=== PATIENT | male | born 1965 | race Caucasian/White ===

== ENCOUNTER 2024-04-22 22:43 | Inpatient (IN) ==
--- NOTE | 2024-04-22 23:18 | Emergency Department Note ---
Impression & Plan SHRUTHI (acute kidney injury), Thrombocytopenia, Body aches ED Provider Note NAME: MAINOR GALINDO Jr AGE: 58 SEX: M : 1965 ARRIVES VIA: Walk-In INFORMANT: Patient, significant other ED PROVIDER(S): Trenton Trevizo MD CHIEF COMPLAINT: Allover body pain. MEDICAL DECISION MAKING: Patient presented due to concern for diffuse body pain. IV was established and blood work was obtained. Patient was ordered IV fentanyl and IV Ofirmev. Review of the patient's prior blood work did show an increase in lymphocyte count as well as thrombocytopenia. Anaplasma Relexxii and Lyme's testing also ordered along with a CK. Patient was ordered IV fluids. The patient did have a CT angio of the chest completed yesterday and CT abdomen pelvis without contrast pleated earlier today. 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 When asked the patient states that this has been under surveillance. Patient has good pedal pulse in the bilateral lower extremities. Blood work shows a normal white count mild anemia with thrombocytopenia of 88,000. SHRUTHI with creatinine 1.73 patient was ordered additional IV fluids. Initial lactate of 2.2. Repeat 1.6. TSH is elevated but free T4 is normal. BBC and Anaplasma smears do not show evidence of intracytoplasmic inclusion bodies. BioFire negative. Patient was still having pain was ordered IV morphine 6 mg IV. I did speak with the on-call hospital service Dr. Erickson and the patient was admitted to the medicine service. Discussion w/ other healthcare providers: Dr. Erickson inpatient medicine service Prior /Outside records reviewed: None Differential diagnosis: Infection, dehydration, metabolic abnormality, hypo/hyperglycemia, electrolyte imbalance, anemia, UTI, pneumonia, thyroid dysfunction among others were considered. Diagnostics, as interpreted by me: ECG: None Cardiac monitoring: An order was placed for continuous cardiac monitoring. The monitor shows a rate of 75 with sinus rhythm. Patient was placed on pulse oximetry Medical decision rules: None Imaging studies: I informally interpreted the patient's Chest x-ray does not show obvious pneumonia or pneumothorax but may show pulmonary nodules. with formal report to follow. HPI: Patient presents due to concern for allover body pain. Patient states that he was seen yesterday for chest pain he was seen today for lower back pain. The patient states that he did receive some tramadol and morphine here. The patient states as an outpatient the patient did try to take an oxycodone but did not have improvement in symptoms. Patient states that he does have chest pain now. Patient states that he does have some right-sided lower back pain. Patient denies any falls or trauma no heavy lifting twisting or turning. The patient denies any increase in exercise or activity. No significant amount of exercise. Patient states that he had a normal bowel movement today. Patient states that earlier when he was here he did provide a urine specimen which he noticed darker color and states that he has not had as much urine output since. Patient states that he did have 2 milkshakes and 2 cheeseburgers since time of his discharge. Patient denies any numbness tingling or focal weakness. The patient reports that he has allover body aches. Patient does not report any tick bites or concern for Lyme's. He does have a history of sarcoid. Patient does state that his joints do hurt. PAST MEDICAL HISTORY: See Below PAST SURGICAL HISTORY: See Below SOCIAL HISTORY: See Below HOME MEDICATIONS: See Below ALLERGIES: See Below VITALS: See Below PHYSICAL EXAMINATION: GENERAL: Uncomfortable but nontoxic in appearance. EYE EXAM: Normal conjunctiva. PERRL, no anisocoria and EOM's grossly intact w/o pain. OROPHARYNX: Moist mucus membranes, grossly normal dentition. NECK: Trachea midline, no stridor. LUNGS: Clear to auscultation. Normal chest wall mechanics. HEART: NSR, no MRG. ABDOMEN: Abdomen soft, non-tender, no masses, no rebound or guarding. BACK: No CVA TTP. No midline thoracic or lumbar TTP. SKIN: No rashes and no bruising. UPPER EXTREMITIES: Upper extremities are grossly normal. No evidence of obvious joint swelling. LOWER EXTREMITIES: Grossly normal, no edema. 2+ pedal pulses bilaterally. Negative Homans' sign bilaterally. No evidence of obvious joint swelling. NEURO EXAM: A&O x3, cranial nerves II-XII grossly intact, normal speech, moves all 4 extremities. Past Med/Surg History Problem List (Updated 04/23/24 @ 04:42 by Trenton Trevizo MD) Body aches (Acute) Thrombocytopenia (Acute) Muscle spasticity SHRUTHI (acute kidney injury) (Acute) Back pain (Acute) Atypical chest pain (Acute) Cough Pre-op testing Abnormal chest CT Medical History No pertinent family history Shortness of breath Multiple pulmonary nodules Sarcoidosis Surgical History No pertinent past surgical history Social History Smoking Status: Never smoker Tobacco Type: Smokeless Tobacco (Dip or Chew) Cigarettes Per Day: 1/2; Second Hand Exposure: No; Do You Dip or Chew Tobacco: Yes; Hx Alcohol Use: No Hx Substance Use: No Preferred Language: Latvian Communication Ability: Effective Lining Repairer Required: No Beliefs That Will Affect Care: None Current Living Situation: Spouse Other Information That Helps Us Care for You: No Feels Safe at Home: Yes Safety Concerns: Feels Safe At This Time Assistive Devices: Glasses and Hearing Aid - Bilateral Allergies Allergies Allergy/AdvReac Type Severity Reaction Status Date / Time No Known Allergies Allergy Verified 10/18/23 13:50 Home Meds Home Medications Medication Instructions Recorded Confirmed cholecalciferol (vitamin D3) 62.5 mcg PO DAILY 11/07/22 10/18/23 mcg (2,500 unit) capsule cholecalciferol (vitamin D3) 25 50 mcg PO QAM 04/21/24 04/21/24 mcg (1,000 unit) tablet fexofenadine 180 mg tablet 180 mg PO QAM 04/21/24 04/21/24 folic acid 1 mg tablet 1 mg PO QAM 04/21/24 04/21/24 methotrexate sodium 2.5 mg tablet 10 mg PO DIRECTED 04/21/24 04/21/24 Previous Rx's Medication Instructions Recorded prednisone 20 mg tablet 20 mg PO BID 5 days #10 tabs 04/21/24 cyclobenzaprine 5 mg tablet 5 mg PO TID PRN muscle spasm #30 04/22/24 tabs oxycodone 5 mg tablet 5 mg PO Q8H PRN pain #11 tabs 04/22/24 Results & Data (ED) Vital Signs Vital Signs - 24 hr 04/22/24 22:46 04/22/24 23:09 04/22/24 23:30 Temperature 36.7 C Temperature Source Temporal Artery Scan Pulse Rate 92 H 76 Pulse Rate [Finger] 70 Pulse Rhythm [Finger] Regular Pulse Strength [Finger] Normal Respiratory Rate 18 20 Respiratory Effort / Characteristics Non-Labored Non-Labored Spontaneous Respiratory Depth Normal Normal Respiratory Pattern Regular Blood Pressure [Right Arm] 152/93 H Blood Pressure Mean [Right Arm] 112 Pulse Oximetry 93 95 Oxygen Delivery Method Room Air Room Air Sepsis Recent Fever Within 48 Hours No Sepsis New/Unexplained Change in Mental Status N/A Sepsis Action Taken by Nursing No Action Required 04/22/24 23:30 04/23/24 01:00 Temperature Temperature Source Pulse Rate Pulse Rate [Finger] 72 Pulse Rhythm [Finger] Regular Pulse Strength [Finger] Normal Respiratory Rate 20 Respiratory Effort / Characteristics Non-Labored Spontaneous Respiratory Depth Normal Respiratory Pattern Regular Blood Pressure [Right Arm] 166/87 H Blood Pressure Mean [Right Arm] 113 Pulse Oximetry 95 91 Oxygen Delivery Method Room Air Room Air Sepsis Recent Fever Within 48 Hours Sepsis New/Unexplained Change in Mental Status Sepsis Action Taken by Group Home Medications Current Medication List: was personally reviewed by me Laboratory Data Attestation: I reviewed the patient's lab results. 04/22/24 23:35 04/22/24 23:35 Lab Results 04/22/24 04/22/24 04/23/24 Range/Units 23:35 23:50 01:35 WBC 10.45 (4.8-10.8) K/ul RBC 4.61 L (4.70-6.10) M/uL Hgb 13.8 L (14.0-18.0) g/dl Hct 40.2 L (42.0-52.0) % MCV 87.2 (80.0-100.0) fL MCH 29.9 (25.0-34.0) pg MCHC 34.3 (32.0-36.0) g/dL RDW Std Deviation 41.8 (36.4-46.3) fL RDW Coeff of Fermín 13.7 (11.5-14.5) % Plt Count 88 L (130-400) K/uL MPV 11.3 (9.4-12.4) fL Absolute Nucleated RBC 0.19 H (0.00-0.12) K/uL Nucleated RBC % (auto) 1.8 % Neutrophils % (Manual) 57 % Lymphocytes % (Manual) 32 % Monocytes % (Manual) 3 % Eosinophils % (Manual) 2 % Basophils % (Manual) 1 % Metamyelocytes % (Man) 2 % Myelocytes % (Man) 3 % Neutrophils # (Manual) 5.96 (1.40-6.50) K/uL Total Absolute Neuts 5.96 (1.4-6.5) K/uL Lymphocytes # (Manual) 3.34 (1.2-3.4) K/uL Total Abs Lymphocytes 3.34 (1.2-3.4) K/uL Monocytes # (Manual) 0.31 (0.11-0.59) K/uL Eosinophils # (Manual) 0.21 (0-0.50) K/uL Basophils # (Manual) 0.10 (0-0.2) K/uL Metamyelocytes # (Man) 0.21 H (0-0) K/uL Myelocytes # (Manual) 0.31 H (0-0) K/uL RBC Morphology Unremarkable PT 14.1 H (9.0-12.0) Seconds INR 1.3 H (0.9-1.1) Sodium 139 (136-145) mmol/L Potassium 4.2 (3.5-5.1) mmol/L Chloride 103 (98-107) mmol/L Carbon Dioxide 27 (21-32) mmol/L Anion Gap 9 (3-11) BUN 23 (6-23) mg/dl Creatinine 1.73 H (0.6-1.4) mg/dl Est Cr Clr Drug Dosing Not Reportable Est GFR ( Amer) 49.3 ml/min Est GFR (Non-Af Amer) 42.6 ml/min BUN/Creatinine Ratio 13.3 (10-20) Glucose 185 H (70-99(Fasting)) mg/dl Lactate 2.2 H* 1.6 (0.4-2.0) mmol/L Calcium 9.9 (8.6-10.3) mg/dl Magnesium 2.0 (1.7-2.4) mg/dl Total Bilirubin 0.4 (0.2-1.0) mg/dl AST 68 H (13-39) U/L ALT 44 (7-52) U/L Alkaline Phosphatase 94 (34-104) U/L Total Creatine Kinase 118 (30-223) U/L Troponin I High Sens 18.2 D (0-20) pg/ml C-Reactive Protein 1.96 H (0-0.5) mg/dl Total Protein 7.2 (6.0-8.3) gm/dl Albumin 4.6 (3.4-5.0) gm/dl Globulin 2.6 (2.5-4.0) gm/dl Albumin/Globulin Ratio 1.8 (0.9-2) TSH 7.728 H (0.300-4.500) uIu/ml Free T4 0.85 (0.61-1.60) ng/dl Adenovirus (PCR) Not Detected (NotDetected) Anaplasma Smear See Comment Babesia Smear See Comment B. pertussis DNA (PCR) Not Detected (NotDetected) B.parapertussis DNA PCR Not Detected (NotDetected) Lyme Disease Screen Negative (Negative) C. pneumoniae DNA (PCR) Not Detected (NotDetected) Coronavirus OC43 (PCR) Not Detected (NotDetected) Coronavirus HKU1 (PCR) Not Detected (NotDetected) Coronavirus 229E (PCR) Not Detected (NotDetected) SARS-CoV-2 (PCR) Not Detected (NotDetected) Coronavirus NL63 (PCR) Not Detected (NotDetected) Human Metapneumovir PCR Not Detected (NotDetected) Influenza Type A (PCR) Not Detected (NotDetected) Influenza Type B (PCR) Not Detected (NotDetected) M. pneumoniae (PCR) Not Detected (NotDetected) Parainfluenza 1 (PCR) Not Detected (NotDetected) Parainfluenza 2 (PCR) Not Detected (NotDetected) Parainfluenza 3 (PCR) Not Detected (NotDetected) Parainfluenza 4 (PCR) Not Detected (NotDetected) RSV (PCR) Not Detected (NotDetected) Entero/Rhino (PCR) Not Detected (NotDetected) Administered Medications Lactated Ringer's (Lr) 1,000 mls @ 125 mls/hr IV .Q8H [facility] Stop: 05/23/24 02:52 Last Admin: 04/23/24 03:25 Dose: 125 mls/hr Documented By: Magnesium Sulfate/Dextrose (Magnesium Sulfate / D5w) 1 gm in 100 mls @ 50 mls/hr IV Q2H [facility] Stop: 04/23/24 07:14 Last Admin: 04/23/24 03:25 Dose: 50 mls/hr Documented By: JACKSON Discontinued Medications Cyclobenzaprine HCl (Cyclobenzaprine Hcl 10 Mg Tab) 10 mg PO NOW STA Stop: 04/23/24 01:24 Last Admin: 04/23/24 01:32 Dose: 10 mg Documented By: JUAN DAVID Diazepam (Diazepam 5 Mg Tablet) 5 mg PO NOW ONE Stop: 04/23/24 03:08 Last Admin: 04/23/24 03:24 Dose: 5 mg Documented By: JACKSON Fentanyl Citrate (Fentanyl Citrate Pf 100 Mcg/2 Ml Vial) 100 mcg IV NOW STA Stop: 04/22/24 23:14 Last Admin: 04/22/24 23:27 Dose: 100 mcg Documented By: JUAN DAVID Hydromorphone HCl (Hydromorphone Inj 0.5 Mg/0.5 Ml Syr) 0.5 mg IV NOW STA Stop: 04/23/24 01:05 Last Admin: 04/23/24 01:11 Dose: 0.5 mg Documented By: JUAN DAVID Hydromorphone HCl (Hydromorphone Inj 0.5 Mg/0.5 Ml Syr) 0.5 mg IV Q15M PRN PRN Reason: Pain Last Admin: 04/23/24 02:08 Dose: 0.5 mg Documented By: JUAN DAVID Sodium Chloride (Nss) 1,000 mls @ 999 mls/hr IV .Q1H1M [facility] Stop: 04/23/24 00:15 Last Admin: 04/22/24 23:32 Dose: Not Given Documented By: JUAN DAVID Sodium Chloride (Nss) 1,000 mls @ 999 mls/hr IV .Q1H1M ONE Stop: 04/23/24 00:13 Last Infusion: 04/23/24 01:05 Dose: Infused Documented By: JUAN DAVID Admin: 04/22/24 23:31 Dose: 999 mls/hr Documented By: JUAN DAVID Acetaminophen (Ofirmev) 1,000 mg in 100 mls @ 400 mls/hr IV NOW STA Stop: 04/22/24 23:27 Last Infusion: 04/22/24 23:58 Dose: Infused Documented By: JUAN DAVID Admin: 04/22/24 23:31 Dose: 400 mls/hr Documented By: JUAN DAVID Sodium Chloride (Nss) 1,000 mls @ 999 mls/hr IV .Q1H1M ONE Stop: 04/23/24 01:32 Last Infusion: 04/23/24 01:44 Dose: Infused Documented By: JUAN DAVID Admin: 04/23/24 00:38 Dose: 999 mls/hr Documented By: JUAN DAVID Morphine Sulfate (Morphine Sulfate 10 Mg/Ml Carp/Vial) 6 mg IV NOW STA Stop: 04/23/24 00:33 Last Admin: 04/23/24 00:37 Dose: 6 mg Documented By: JUAN DAVID Imaging Data Radiologist's Impression: Renal Ultrasound 04/23/24 01:33 Exam(s): US RENAL EXAM: US Retroperitoneal Complete, Renal CLINICAL HISTORY: Reason for exam: pain. TECHNIQUE: Real-time complete ultrasound of the retroperitoneum with image documentation. COMPARISON: No relevant prior studies available. FINDINGS: Right kidney: Unremarkable. No stones. No hydronephrosis. The right kidney measures 12.1 x 4.0 x 5.6 cm. Left kidney: The left kidney measures 11.9 x 5.0 x 5.7 cm. 6 mm left renal cyst. No stones. No hydronephrosis. Bladder: Bilateral ureteral jets visualized. Mobile debris within the urinary bladder. Mild bladder wall thickening. IMPRESSION: Mobile debris within the urinary bladder. Mild bladder wall thickening. Correlate for cystitis. Electronically signed by: Jay Crooks M.D. 04/23/24 03:45 AM Discharge Plan Visit Data Chief Complaint: Pain (Generalized) Stated Complaint: CHEST PAIN, GROIN/SHOULDER/ANKLE/BACK PAIN ED Provider: Trenton Trevizo Discharge Problem: SHRUTHI (acute kidney injury), Thrombocytopenia, Body aches Patient Disposition: Admitted As Inpatient Discharge Instructions Interventions: ED Discharge Assessment Last Done: 04/23/24 02:04
[2024-04-22] MEDS: fentaNYL citrate PF 100 MCG/2 ML VIAL IV STA (23:27)
[2024-04-22] MEDS: ACETAMINOPHEN 1,000 MG/100 ML VIAL IV STA (23:31)
[2024-04-22] MEDS: SODIUM CHLORIDE 0.9% 1,000 ML IV ONE (23:31)
[2024-04-22] MEDS: SODIUM CHLORIDE 0.9% 1,000 ML IV SCH (23:32)
[2024-04-23 00:12] LABS: Alanine Aminotransferase 44 U/L (7-52); Albumin Globulin Ratio 1.8 (0.9-2); Albumin Level 4.6 gm/dl (3.4-5.0); Alkaline Phosphatase 94 U/L (34-104); Anion Gap 9 (3-11); Aspartate Aminotransferase 68 U/L (13-39); BUN Creatinine Ratio 13.3 (10-20); Bilirubin,Total 0.4 mg/dl (0.2-1.0); Blood Urea Nitrogen 23 mg/dl (6-23); Calcium 9.9 mg/dl (8.6-10.3); Carbon Dioxide 27 mmol/L (21-32); Chloride 103 mmol/L (98-107); Est GFR (African American) 49.3 ml/min; Est GFR (Non-African American) 42.6 ml/min; Globulin 2.6 gm/dl (2.5-4.0); Glucose 185 mg/dl (70-99(Fasting)); Potassium 4.2 mmol/L (3.5-5.1); Sodium 139 mmol/L (136-145); Total Protein 7.2 gm/dl (6.0-8.3)
[2024-04-23 00:20] LABS: INR 1.3 (0.9-1.1); Prothrombin Time 14.1 Seconds (9.0-12.0)
[2024-04-23 00:32] LABS: ALC (manual) 3.34 K/uL (1.2-3.4); ANC (manual) 5.96 K/uL (1.4-6.5); Basophils % (manual) 1 %; Eosinophils # (manual) 0.21 K/uL (0-0.50); Eosinophils % (manual) 2 %; Hematocrit (blood only) 40.2 % (42.0-52.0); Hemoglobin 13.8 g/dl (14.0-18.0); Lymphocytes # (manual) 3.34 K/uL (1.2-3.4); Lymphocytes % (manual) 32 %; Mean Corpuscular Hemoglobin 29.9 pg (25.0-34.0); Mean Corpuscular Hgb Conc 34.3 g/dL (32.0-36.0); Mean Corpuscular Volume 87.2 fL (80.0-100.0); Mean Platelet Volume 11.3 fL (9.4-12.4); Metamyelocytes # (manual) 0.21 K/uL (0-0); Metamyelocytes % (manual) 2 %; Monocytes # (manual) 0.31 K/uL (0.11-0.59); Monocytes % (manual) 3 %; Myelocytes # (manual) 0.31 K/uL (0-0); Myelocytes % (manual) 3 %; Neutrophils # (manual) 5.96 K/uL (1.40-6.50); Neutrophils % (manual) 57 %; Nucleated RBC # (auto) 0.19 K/uL (0.00-0.12); Nucleated RBC % (auto) 1.8 %; Platelet Count 88 K/uL (130-400); RBC Morphology Unremarkable; RDW Coefficient of Variation 13.7 % (11.5-14.5); RDW Standard Deviation 41.8 fL (36.4-46.3); Red Blood Count 4.61 M/uL (4.70-6.10); White Blood Count 10.45 K/ul (4.8-10.8)
[2024-04-23] MEDS: MoRPHine SULFATE 10 MG/ML CARP/VIAL IV STA (00:37)
[2024-04-23] MEDS: SODIUM CHLORIDE 0.9% 1,000 ML IV ONE (00:38)
[2024-04-23 00:55] LABS: Thyroid Stimulating Hormone 7.728 uIu/ml (0.300-4.500); Troponin I High Sensitivity 18.2 pg/ml (0-20)
--- NOTE | 2024-04-23 00:59 | History & Physical Report ---
Date of Service April 23, 2024 Assessment & Plan (1) Back pain: Plan: -Back pain most likely musculoskeletal in nature -As needed pain meds. Magnesium started. -Continue on prednisone 20 mg twice daily. -K-pad as needed. -Flexeril 5 mg 3 times daily. -Also try 1 dose of Valium. (2) Muscle spasticity: Plan: -Patient most likely is having muscle spasms. -Patient received morphine 6 mg, Dilaudid 0.5 mg, fentanyl 100 mcg, acetaminophen 1000 mg, in the ED but still was having spasticity. -Pain meds as needed, Flexeril 5 mg 3 times a day. Started on 2 bags of magnesium. (3) Body aches: Plan: -Patient with bodyaches and abnormal lab abnormalities without unknown source of infection. -PT of 14.1, INR 1.3. -Lactate of 2.2 which improved to 1.6 after fluids. -Elevated AST of 68. -CRP of 1.96 -TSH of 7.728 -Urine showed 2+ protein, 1+ blood -Respiratory BioFire negative. -Creatinine of 1.73. -No leukocytosis, hemoglobin of 13.8, platelet count of 88 -Tick panel negative. Respiratory BioFire negative. -Continue on lactated Ringer's at 125. -Blood cultures pending. -If labs continue to trend downward may consider infectious disease as there is no known source of infection at this time. -Will hold off on antibiotics. May consider if clinical picture worsens. (4) Thrombocytopenia: Plan: -Platelet count of 88, slightly declining. No other previous history of thrombocytopenia. -Most likely secondary to underlying infection though source is not known. (5) SHRUTHI (acute kidney injury): Plan: -Creatinine of 1.73 which is has been increasing since his ED visit earlier today and yesterday. -Lactate of 2.2, mostly secondary to dehydration. - (6) Atypical chest pain: Plan: -Patient with atypical chest pain most likely result of muscle spasticity. -Troponin negative. -Continue to monitor on telemetry. (7) Sarcoidosis: Plan: -Patient with a chest CTA yesterday which showed no pulmonary embolus. Signs of patient's pulmonary sarcoidosis. -Did also show solid pulmonary nodules measuring up to 6 mm, follow-up was recommended. -On methotrexate, holding at this time. -Do not believe that this is a sarcoidosis flare but cannot rule out at this time. (8) Nephrolithiasis: Plan: -Patient had a abdominal and pelvis CT earlier today which showed nonobstructing bilateral nephrolithiasis. -UA is stated above. 1+ blood in urine. No bacteria present -Renal ultrasound showed mobile debris within the urinary bladder as well as mild bladder wall thickening. (9) Enlarged prostate: Plan: -Abdominal and pelvis CT earlier today showed prostamegaly with decompressed urinary bladder. Plan Fluids: LR at 125 Nutrition: Regular Code status: Full code DVT ppx: Will consider if prolonged hospital stay Dispo: PCU/telemetry History of Present Illness Chief Complaint: bodyaches, thrombocytopenia, SHRUTHI, back pain Primary Care Provider: Waylon Gil MD Patient has a past medical history of sarcoidosis on methotrexate who presents to the hospital with back pain that radiates to his groin and down his thighs. Patient is also complaining of overall body pain. He has been seen in the ED 3 times since yesterday. Yesterday he was having chest pain which prompted him into the emergency room which was negative for any cardiac causes. He was sent home on prednisone. Around noon today patient was having some lower back pain and pain into his pelvis. He then was having diffuse pain all over. Majority of his back pain is in the right lower side. Denies any trauma to the area or any recent injuries. Denies heavy lifting. He states that he has not had much urine output. Denies any fevers or chills but did state that he felt clammy for a little bit. He has tried tramadol and morphine but did not alleviate the pain. Allergies Allergy/AdvReac Type Severity Reaction Status Date / Time No Known Allergies Allergy Verified 10/18/23 13:50 Home Medications Medication Instructions Recorded Confirmed Type cholecalciferol (vitamin D3) 62.5 mcg PO DAILY 11/07/22 10/18/23 History mcg (2,500 unit) capsule cholecalciferol (vitamin D3) 25 50 mcg PO QAM 04/21/24 04/21/24 History mcg (1,000 unit) tablet fexofenadine 180 mg tablet 180 mg PO QAM 04/21/24 04/21/24 History folic acid 1 mg tablet 1 mg PO QAM 04/21/24 04/21/24 History methotrexate sodium 2.5 mg tablet 10 mg PO DIRECTED 04/21/24 04/21/24 History prednisone 20 mg tablet 20 mg PO BID 5 days #10 tabs 04/21/24 Rx cyclobenzaprine 5 mg tablet 5 mg PO TID PRN muscle spasm #30 04/22/24 Rx tabs oxycodone 5 mg tablet 5 mg PO Q8H PRN pain #11 tabs 04/22/24 Rx Past Med/Surg History Problem List (Updated 04/23/24 @ 04:47 by Fortunato Mendes DO) Enlarged prostate Nephrolithiasis Body aches (Acute) Thrombocytopenia (Acute) Muscle spasticity SHRUTHI (acute kidney injury) (Acute) Back pain (Acute) Atypical chest pain (Acute) Cough Pre-op testing Abnormal chest CT Medical History No pertinent family history Shortness of breath Multiple pulmonary nodules Sarcoidosis Surgical History No pertinent past surgical history Social History Smoking Status: Never smoker Tobacco Type: Smokeless Tobacco (Dip or Chew) Cigarettes Per Day: 1/2; Second Hand Exposure: No; Do You Dip or Chew Tobacco: Yes; Hx Alcohol Use: No Hx Substance Use: No Preferred Language: Lao Communication Ability: Effective Claims Account Specialist Required: No Beliefs That Will Affect Care: None Current Living Situation: Spouse Other Information That Helps Us Care for You: No Feels Safe at Home: Yes Safety Concerns: Feels Safe At This Time Assistive Devices: Glasses and Hearing Aid - Bilateral Review of Systems Review of Systems: All systems reviewed & are unremarkable except as noted in Subjective Physical Exam Physical Exam: Constitutional: well-appearing, mild acute distress, uncomfortable HEENT: NCAT, no conjunctival injection CV: regular rhythm, no murmur appreciated, extremities well-perfused, no LE edema Resp: CTABL, no wheezes/rales/rhonchi appreciated, no increased work of breathing GI: soft, nondistended, nontender, BS normoactive MSK: Muscle spasticity in the lower back, thighs, hamstrings, abdominal wall Skin: warm, dry, no rash appreciated Neuro: alert, oriented, no focal neurologic deficit appreciated Results & Data Results & Data Vital Signs (Past 12 Hours) Vital Signs Temp Pulse Pulse Resp BP Pulse Ox O2 Del Method 04/22/24 23:30 95 Room Air 04/22/24 23:30 70 20 152/93 H 95 Room Air 04/22/24 23:09 76 04/22/24 22:46 36.7 C 92 H 18 93 Room Air Supervising Physician Co-Signing Physician Notes Patient seen and examined, chart reviewed, case discussed with Dr. Mendes and I agree with the assessment and plan as above. Patient with severe body pain - back pain, leg pain, muscle spasms in the chest and back On exam he is in moderate distress secondary to pain MMM, neck supple +S1/S2, regular, no m/r/g Lungs CTA Abd soft, NT/ND Ext - warm, well perfused Labs and images reviewed Assessment/Plan Question infection - patient with leukocytosis, baseline WBC count is 3-4 (likely secondary to underlying Sarcooidosis), wosening thrombocytopenia -Will follow cultures -Initiate Ceftriaxone -Pain control - Valium, Magnesium for muscle spasm -Remainder as above Resident Activity Tracking Resident Involvement: Resident Care Provided Care Provided: Adult Hospital Medicine (1) Back pain Back pain laterality: unspecified Back pain location: back pain in unspecified location Chronicity: acute Qualified Code(s): M54.9 - Dorsalgia, unspecified
[2024-04-23 01:11] LABS: Adenovirus PCR Not Detected (NotDetected); Bordetella parapertussis PCR Not Detected (NotDetected); Bordetella pertussis PCR Not Detected (NotDetected); Chlamydia pneumoniae PCR Not Detected (NotDetected); Coronavirus 229E PCR Not Detected (NotDetected); Coronavirus CoV-2 (COVID19)PCR Not Detected (NotDetected); Coronavirus HKU1 PCR Not Detected (NotDetected); Coronavirus NL63 PCR Not Detected (NotDetected); Coronavirus OC43PCR Not Detected (NotDetected); Human Metapneumovirus PCR Not Detected (NotDetected); Influenza A PCR Not Detected (NotDetected); Influenza B PCR Not Detected (NotDetected); Mycoplasma pneumoniae PCR Not Detected (NotDetected); Parainfluenza Virus 1 PCR Not Detected (NotDetected); Parainfluenza Virus 2 PCR Not Detected (NotDetected); Parainfluenza Virus 3 PCR Not Detected (NotDetected); Parainfluenza Virus 4 PCR Not Detected (NotDetected); Respiratory Syncytial VirusPCR Not Detected (NotDetected); Rhinovirus/Enterovirus PCR Not Detected (NotDetected)
[2024-04-23] MEDS: HYDROmorphone INJ 0.5 MG/0.5 ML SYR IV STA (01:11)
[2024-04-23 01:17] LABS: C Reactive Protein 1.96 mg/dl (0-0.5)
[2024-04-23] MEDS: CYCLOBENZAPRINE HCL 10 MG TAB PO STA (01:32)
[2024-04-23 01:37] LABS: T4 Free Thyroxine 0.85 ng/dl (0.61-1.60)
[2024-04-23] MEDS ORDERED: HYDROmorphone INJ 1 MG/ML SYRINGE IV PRN (01:43)
[2024-04-23 01:54] LABS: Creatine Kinase 118 U/L (30-223)
[2024-04-23] MEDS: HYDROmorphone INJ 0.5 MG/0.5 ML SYR IV PRN ×2 (02:08→05:09)
[2024-04-23] MEDS ORDERED: HYDROmorphone INJ 0.5 MG/0.5 ML SYR IV PRN (02:53)
[2024-04-23] MEDS ORDERED: ONDANSETRON INJ 2 MG/ML 2 ML VIAL IV PRN (02:53)
[2024-04-23] MEDS: diazePAM 5 MG TABLET PO ONE (03:24)
[2024-04-23] MEDS: MAGNESIUM SULFATE / D5W 1 GM/100 ML BAG IV SCH (03:25)
[2024-04-23] MEDS: LACTATED RINGER'S 1,000 ML IV SCH (03:25)
--- NOTE | 2024-04-23 03:37 | Billing Data ---
Date of Service April 23, 2024 Coding Level of Care Code 70204 INT INP/OBS CARE
--- NOTE | 2024-04-23 03:47 | Ultrasound Report ---
Exam(s): US RENAL EXAM: US Retroperitoneal Complete, Renal CLINICAL HISTORY: Reason for exam: pain. TECHNIQUE: Real-time complete ultrasound of the retroperitoneum with image documentation. COMPARISON: No relevant prior studies available. FINDINGS: Right kidney: Unremarkable. No stones. No hydronephrosis. The right kidney measures 12.1 x 4.0 x 5.6 cm. Left kidney: The left kidney measures 11.9 x 5.0 x 5.7 cm. 6 mm left renal cyst. No stones. No hydronephrosis. Bladder: Bilateral ureteral jets visualized. Mobile debris within the urinary bladder. Mild bladder wall thickening. IMPRESSION: Mobile debris within the urinary bladder. Mild bladder wall thickening. Correlate for cystitis. Electronically signed by: Jay Crooks M.D. 04/23/24 03:45 AM
[2024-04-23] MEDS ORDERED: ACETAMINOPHEN 650 MG SUPP PR PRN (04:00)
[2024-04-23 05:39] LABS: Appearance Urine Cloudy (Clear); Bacteria Urine Automated None Seen (None Seen); Bilirubin Urine Negative (Negative); Blood Urine 2+ (Negative); Calcium Oxalate Crystals Urine Present (None Prsent); Cast Urine Automated >20 /lpf (0-2); Color Urine Yellow; Creatinine Urine Random 249.3 mg/dl; Glucose Urine UA Negative (Negative); Granular Casts Urine Present /lpf (None Prsent); Ketones Urine Trace (Negative); Leukocyte Esterase Urine Negative (Negative); Mucus Urine Present (None Prsent); Nitrite Urine Negative (Negative); Protein Creatinine Ratio Urine 0.8 (0-0.2); Protein Urine 2+ (Negative); RBC Urine Automated 0-2 /hpf (0-2); Specific Gravity Urine 1.035 (1.000-1.030); Urobilinogen Urine Negative (Negative); WBC Urine Automated 0-5 /hpf (0-5); pH Urine 5.5 (4.5-7.5)
[2024-04-23 06:56] LABS: INR 1.3 (0.9-1.1); Prothrombin Time 13.4 Seconds (9.0-12.0)
[2024-04-23 07:01] LABS: Albumin Globulin Ratio 1.9 (0.9-2); Albumin Level 4.1 gm/dl (3.4-5.0); BUN Creatinine Ratio 14.1 (10-20); Bilirubin,Total 0.3 mg/dl (0.2-1.0); C Reactive Protein 2.5 mg/dl (0-0.5); Calcium 8.6 mg/dl (8.6-10.3); Creatinine Clr Calc Pharmacy 66.1 ml/min; Est GFR (African American) 62.7 ml/min; Est GFR (Non-African American) 54.1 ml/min; Globulin 2.2 gm/dl (2.5-4.0); Potassium 4.6 mmol/L (3.5-5.1); Total Protein 6.3 gm/dl (6.0-8.3)
[2024-04-23 07:13] LABS: Hematocrit (blood only) 36.1 % (42.0-52.0); Hemoglobin 12.2 g/dl (14.0-18.0); Mean Corpuscular Hemoglobin 29.9 pg (25.0-34.0); Mean Corpuscular Hgb Conc 33.8 g/dL (32.0-36.0); Mean Corpuscular Volume 88.5 fL (80.0-100.0); Mean Platelet Volume 11.1 fL (9.4-12.4); Nucleated RBC # (auto) 0.18 K/uL (0.00-0.12); Nucleated RBC % (auto) 1.4 %; Platelet Count 66 K/uL (130-400); RDW Standard Deviation 44.6 fL (36.4-46.3); Red Blood Count 4.08 M/uL (4.70-6.10); White Blood Count 13.07 K/ul (4.8-10.8)
[2024-04-23 07:21] LABS: Troponin I High Sensitivity 14.7 pg/ml (0-20)
--- NOTE | 2024-04-23 07:37 | XRay Report ---
XR chest 1V portable HISTORY: weakness COMPARISON: Chest 08/23/2023. FINDINGS: No pneumothorax. No pleural effusions. The patient's known scattered pulmonary nodules are better appreciated on the recent chest CTA. The heart remains mildly enlarged. There is mild central pulmonary vascular congestion without overt edema. No acute fractures identified. IMPRESSION: 1. Cardiomegaly with mild central pulmonary vascular congestion. 2. The patient's known scattered pulmonary nodules are better appreciated on the recent chest CTA. ACT 112: Negative or not required by law. Electronically signed by: Kp Tamez M.D. 04/23/2024 7:35 AM
[2024-04-23] MEDS: predniSONE 20 MG TAB PO SCH (07:53)
[2024-04-23] MEDS: cefTRIAXone SODIUM 2,000 MG/50 ML BAG IV SCH (07:53)
[2024-04-23] MEDS: CYCLOBENZAPRINE HCL 5 MG TAB PO SCH (08:00)
[2024-04-23 08:41] LABS: ALC (manual) 3.92 K/uL (1.2-3.4); ANC (manual) 5.62 K/uL (1.4-6.5); Eosinophils # (manual) 0.39 K/uL (0-0.50); Eosinophils % (manual) 3 %; Lymphocytes # (manual) 3.92 K/uL (1.2-3.4); Lymphocytes % (manual) 30 %; Metamyelocytes # (manual) 0.13 K/uL (0-0); Metamyelocytes % (manual) 1 %; Monocytes # (manual) 0.26 K/uL (0.11-0.59); Monocytes % (manual) 2 %; Myelocytes # (manual) 0.26 K/uL (0-0); Myelocytes % (manual) 2 %; Neutrophils # (manual) 5.62 K/uL (1.40-6.50); Neutrophils % (manual) 43 %; Other Cell Type % 19 %; Other Cells # (manual) 2.48 K/uL (0-0); RBC Morphology Unremarkable
[2024-04-23] MEDS: ACETAMINOPHEN 325 MG TAB PO PRN (09:15)
--- NOTE | 2024-04-23 10:54 | Electrocardiogram Report ---
Test Reason : Blood Pressure : */* mmHG Vent. Rate : 74 BPM Atrial Rate : 74 BPM P-R Int : 144 ms QRS Dur : 70 ms QT Int : 396 ms P-R-T Axes : 60 60 69 degrees QTcB Int : 439 ms Sinus rhythm with occasional Premature ventricular complexes Otherwise normal ECG When compared with ECG of 21-Apr-2024 08:08, Premature ventricular complexes are now Present Confirmed by Jose Eduardo Bowman ([id number]) on 04/23/2024 10:53:37 AM Referred By: REFERRED SELF Confirmed By: Jose Eduardo Bowman
[2024-04-23] MEDS: DOXYCYCLINE HYCLATE 100 MG CAP PO SCH (14:06)
--- NOTE | 2024-04-23 14:32 | Communication Note ---
Date of Service: April 23, 2024 Please refer to the H&P dictated earlier this morning for details of presentation and admission. In brief, the patient presented with back pain radiating to his bilateral groins and thighs. He was also noted to have some thrombocytopenia, acute kidney injury, elevated liver enzymes. For his back pain, he had CT abdomen/pelvis done that showed nonobstructing nephrolithiasis. CTA chest negative. Renal ultrasound was negative. I ordered a lumbar spine MRI, the results of which are still pending. Continue to treat the pain with IV Dilaudid, Flexeril For his thrombocytopenia, since he also has acute kidney injury and elevated liver enzymes, tickborne illness is in the differential. Will start the patient empirically on doxycycline p.o. twice daily and monitor for improvement. I was informed by the pathologist that his flow cytometry and smear are concerning for MDS. Consult hematology.
--- NOTE | 2024-04-23 16:12 | Magnetic Resonance Report ---
LUMBAR SPINE MRI HISTORY: B/l back pain TECHNIQUE: Multiplanar multisequence MRI of the lumbar spine was performed without the use of contras t. COMPARISON: Abdomen and pelvis CT 04/22/2024. FINDINGS: For the purpose of the report the L5-S1 disc space will be located on axial image 28 of 31. Bilateral L5 spondylolysis with 5 mm of anterolisthesis again noted. There is 2 mm of retrolisthesis of L2 on L3. No acute fractures within the lumbar spine. There is abnormal marrow signal intensity se en throughout the visualized osseous structures. This may correspond to the patient's known history o f sarcoidosis. Diffuse metastatic disease or underlying anemia would be difficult to exclude. Moderat e disc space narrowing at L2-L3 and L5-S1. Mild disc space narrowing at L3-L4. The conus terminates a t the L1 level. Mild disc space narrowing at T11-T12. Paravertebral soft tissues are unremarkable. L1-L2: No significant central canal or neural foraminal narrowing. L2-L3: Broad-based posterior disc bulge with mild ligamentum flavum hypertrophy. This results in mode rate central canal narrowing with an AP diameter of 7 mm and moderate bilateral neural foraminal narr owing. The disc bulge abuts the transiting bilateral L3 nerve roots. L3-L4: Broad-based posterior disc bulge with ligamentum and facet hypertrophy resulting in moderate t o severe central canal narrowing with an AP diameter of 5 mm. The disc bulge abuts the bilateral florentino siting L4 nerve roots. There is also moderate bilateral neural foraminal narrowing. L4-L5: Small broad-based posterior disc bulge with ligamentum and facet hypertrophy resulting in mild central canal narrowing. There is mild to moderate bilateral neural foraminal narrowing due to the d isc bulge and facet hypertrophy. L5-S1: No significant central canal narrowing. However, there is severe bilateral neural foraminal na rrowing with impingement of the exiting nerve roots from the spondylolisthesis, small disc bulge, and facet hypertrophy. IMPRESSION: 1. Multilevel degenerative changes as described above most pronounced at the L3-L4 level which demons trates moderate to severe central canal narrowing. 2. Bilateral L5 spondylolysis with associated grade 1 anterolisthesis. This results in severe bilater al neural foraminal narrowing at the L5-S1 level. 3. There is abnormal marrow signal intensity seen throughout the visualized osseous structures. This may correspond to the patient's known history of sarcoidosis. Diffuse metastatic disease or underlyin g anemia would be difficult to exclude. ACT 112: Negative or not required by law. Electronically signed by: Kp Tamez M.D. 04/23/2024 4:11 PM
--- NOTE | 2024-04-23 16:50 | Oncology Consultation ---
Date of Consultation April 23, 2024 Assessment & Plan (1) Leukocytosis: Discussed the case with my hematopathology colleague Dr. Kristin Louis. There is a concern for underlying myelodysplastic syndrome especially given the atypical feature on flow cytometry. Will recommend a bone marrow biopsy and asp iration. Once I have the results of the bone marrow then I will understand the etiology behind abnormal flow. Hematology will continue to follow the patient make appropriate recommendations. Thank you for this interesting hematological consult. Plan Will continue to follow-up with the patient make appropriate recommendations. Bone marrow biopsy recommended, discussed with hospital internal medicine colleagues. History of Present Illness Reason for Consultation: of normal blood cells ? MDS leukocytosis Attending Physician: Faviola Horvath MD History of Present Illness the patient is a very pleasant 58-year-old man with a past history of sarcoidosis who was admitted to the hospital with severe back pain that radiated to his groin and down his thighs. He has been complaining of overall body pain. He was in the ER and was admitted to the hospital. He is on methotrexate for long-term. He had a peripheral smear review which revealed atypical mononuclear cells. Subsequently a flow was performed which was concerning for underlying myelodysplastic syndrome. His latest hemogram revealed a WBC count of 13.07, hemoglobin of 12.2, hematocrit of 36.1% and platelet count of 66,000. Medical oncology has been consulted to assist in management of this patient with abnormal labs, possibly underlying myelodysplastic syndrome. Clinically the patient is doing better. He continues to have pain. However reports no other symptoms. Reports no fever or chills. Allergies Allergy/AdvReac Type Severity Reaction Status Date / Time No Known Allergies Allergy Verified 04/23/24 10:20 Home Medications Medication Instructions Recorded Confirmed Type fexofenadine 180 mg tablet 180 mg PO QAM 04/21/24 04/23/24 History folic acid 1 mg tablet 1 mg PO QAM 04/21/24 04/23/24 History methotrexate sodium 2.5 mg tablet 10 mg PO WK 04/21/24 04/23/24 History prednisone 20 mg tablet 20 mg PO BID 5 days #10 tabs 04/21/24 04/23/24 Rx cyclobenzaprine 5 mg tablet 5 mg PO TID PRN muscle spasm #30 04/22/24 04/23/24 Rx tabs oxycodone 5 mg tablet 5 mg PO Q8H PRN pain #11 tabs 04/22/24 04/23/24 Rx cholecalciferol (vitamin D3) 25 50 mcg PO DAILY 04/23/24 04/23/24 History mcg (1,000 unit) tablet Patient History Medical History No pertinent family history Shortness of breath Multiple pulmonary nodules Sarcoidosis Surgical History No pertinent past surgical history Social History Smoking Status: Never smoker Tobacco Type: Smokeless Tobacco (Dip or Chew) Cigarettes Per Day: 1/2; Second Hand Exposure: No; Do You Dip or Chew Tobacco: Yes; Hx Alcohol Use: No Hx Substance Use: No Preferred Language: Turkish Communication Ability: Effective Termite Technician Required: No Beliefs That Will Affect Care: None Current Living Situation: Spouse Other Information That Helps Us Care for You: No Feels Safe at Home: Yes Safety Concerns: Feels Safe At This Time Assistive Devices: Glasses and Hearing Aid - Bilateral Review of Systems Review of Systems: All systems reviewed & are unremarkable except as noted in HPI & below Constitutional: as per Subjective / HPI Eyes: as per Subjective / HPI Ear, Nose, Mouth, Throat: as per Subjective / HPI Respiratory: as per Subjective / HPI Cardiovascular: as per Subjective / HPI Gastrointestinal: as per Subjective / HPI Genitourinary: + as per Subjective / HPI Musculoskeletal: as per Subjective / HPI Integumentary: as per Subjective / HPI Neurologic: as per Subjective / HPI Psychiatric: as per Subjective / HPI Endocrine: as per Subjective / HPI Hematologic / Lymphatic: as per Subjective / HPI Allergy / Immunological: as per Subjective / HPI Physical Exam Constitutional: WD/WN, vitals as above Eyes: PERRL, conjunctivae normal, anicteric sclerae ENMT: external ear and nose normal, oropharynx normal Neck: trachea midline, no thyromegaly Respiratory: normal respiratory effort, lungs clear to auscultation Cardiovascular: RRR, no murmur, no edema Gastrointestinal (Abdomen): normal bowel sounds, soft, nontender, no hepatosplenomegaly Musculoskeletal: no cyanosis or clubbing, extremities motor strength 5/5 Skin: no rashes, warm and dry Neurologic: patellar DTR's 2+ bilat, sensation intact Psychiatric: A+Ox3, euthymic affect Results & Data Vital Signs (Past 12 Hours) Vital Signs Temp Pulse Pulse Resp BP Pulse Ox O2 Del Method 04/23/24 14:26 70 04/23/24 12:45 36.8 C 68 20 150/89 H 91 Room Air 04/23/24 08:09 36.6 C 80 22 171/100 H 97 Room Air 04/23/24 07:35 76
[2024-04-24 06:46] LABS: Hematocrit (blood only) 32.4 % (42.0-52.0); Hemoglobin 11.2 g/dl (14.0-18.0); Mean Corpuscular Hemoglobin 30.3 pg (25.0-34.0); Mean Corpuscular Hgb Conc 34.6 g/dL (32.0-36.0); Mean Corpuscular Volume 87.6 fL (80.0-100.0); RDW Coefficient of Variation 14.2 % (11.5-14.5)
[2024-04-24 06:48] LABS: White Blood Count 10.64 K/ul (4.8-10.8)
[2024-04-24 06:56] LABS: Mean Platelet Volume 11.4 fL (9.4-12.4); Nucleated RBC # (auto) 0.12 K/uL (0.00-0.12); Nucleated RBC % (auto) 1.1 %; Platelet Count 31 K/uL (130-400)
[2024-04-24 07:00] LABS: Albumin Globulin Ratio 1.8 (0.9-2); Albumin Level 3.7 gm/dl (3.4-5.0); BUN Creatinine Ratio 15.7 (10-20); Bilirubin,Total 0.9 mg/dl (0.2-1.0); Calcium 8.1 mg/dl (8.6-10.3); Est GFR (African American) 67.2 ml/min; Globulin 2.1 gm/dl (2.5-4.0); Potassium 4.1 mmol/L (3.5-5.1); Total Protein 5.8 gm/dl (6.0-8.3)
[2024-04-24 07:13] LABS: Eosinophils # (manual) 0.21 K/uL (0-0.50); Eosinophils % (manual) 2 %; Lymphocytes % (manual) 31 %; Metamyelocytes # (manual) 0.21 K/uL (0-0); Metamyelocytes % (manual) 2 %; Monocytes # (manual) 0.11 K/uL (0.11-0.59); Monocytes % (manual) 1 %; Myelocytes # (manual) 0.11 K/uL (0-0); Myelocytes % (manual) 1 %; Neutrophils % (manual) 31 %; Other Cell Type % 32 %
--- NOTE | 2024-04-24 10:06 | Orthopedic Consultation ---
Date of Consultation April 24, 2024 Assessment & Plan (1) Back pain: Patient has significant multilevel spinal stenosis. The spinal cord itself appears to be healthy and the parts that are visualized however. I do not believe that the spinal stenosis related to any of his urinary symptoms however can be responsible for his leg pain. Given his current medical status I would not consider him a good surgical candidate but something may need to be addressed in the future. I discussed this in detail with his . He may be a candidate for epidural steroid injections as an outpatient as well. Will make any further recommendations if necessary once we can evaluate the patient fully. Dr. Ferreira and I have reviewed the films and the case together and he agrees. History of Present Illness Attending Physician: Faviola Horvath MD History of Present Illness The patient was admitted through the emergency room on 04/23/2024. He presented with complaints of chest pain some shortness of breath and generalized pain throughout his whole body. He states several other trips to the emergency room with similar symptoms. He has history significant for sarcoidosis and is on methotrexate. He had complaints of low back pain and bilateral leg pain and had an MRI performed were consulted to address the lower back issues. Unfortunately at the time of the consultation patient was not available as he was being scanned for another issue. His however was present and has conveyed his pertinent history. She states that he has had low back pain for a number of years but is never really complained of leg symptoms until this episode. He was actually out running when he started having a lot of his pain and symptoms. Allergies Allergy/AdvReac Type Severity Reaction Status Date / Time No Known Allergies Allergy Verified 04/23/24 10:20 Home Medications Medication Instructions Recorded Confirmed Type fexofenadine 180 mg tablet 180 mg PO QAM 04/21/24 04/23/24 History folic acid 1 mg tablet 1 mg PO QAM 04/21/24 04/23/24 History methotrexate sodium 2.5 mg tablet 10 mg PO WK 04/21/24 04/23/24 History prednisone 20 mg tablet 20 mg PO BID 5 days #10 tabs 04/21/24 04/23/24 Rx cyclobenzaprine 5 mg tablet 5 mg PO TID PRN muscle spasm #30 04/22/24 04/23/24 Rx tabs oxycodone 5 mg tablet 5 mg PO Q8H PRN pain #11 tabs 04/22/24 04/23/24 Rx cholecalciferol (vitamin D3) 25 50 mcg PO DAILY 04/23/24 04/23/24 History mcg (1,000 unit) tablet Patient History Medical History No pertinent family history Shortness of breath Multiple pulmonary nodules Sarcoidosis Surgical History No pertinent past surgical history Social History Smoking Status: Never smoker Tobacco Type: Smokeless Tobacco (Dip or Chew) Cigarettes Per Day: 1/2; Second Hand Exposure: No; Do You Dip or Chew Tobacco: Yes; Hx Alcohol Use: No Hx Substance Use: No Preferred Language: Mohawk Communication Ability: Effective Client Delivery Manager Required: No Beliefs That Will Affect Care: None Current Living Situation: Spouse Other Information That Helps Us Care for You: No Feels Safe at Home: Yes Safety Concerns: Feels Safe At This Time Assistive Devices: Glasses and Hearing Aid - Bilateral Physical Exam Physical Exam: Patient was not available to time for consultation for physical exam we will try to meet up with the patient once his scans have been performed. Results & Data Vital Signs (Past 12 Hours) Vital Signs Temp Pulse Pulse Resp BP Pulse Ox O2 Del Method 04/24/24 08:06 37.2 C 68 17 143/77 H 90 Room Air 04/24/24 08:00 65 04/24/24 08:00 Room Air 04/24/24 03:25 36.7 C 71 20 130/78 92 Room Air 04/23/24 23:36 64 04/23/24 22:58 36.6 C 65 20 155/84 H 91 Room Air Diagnostic Findings MRI of the lumbar spine reveals diffuse marrow changes. He has degenerative disc disease at L2-3 and L5-S1. There is grade 1 spondylolisthesis at L5-S1 with moderate to severe lateral recess stenosis and severe bilateral foraminal stenosis. There is moderate stenosis at L2-3 secondary to facet arthropathy and a broad-based disc protrusion. L3-4 has severe spinal stenosis with a combination of a disc protrusion facet arthropathy as well as epidural lipomatosis. L4-5 has moderate to severe spinal stenosis with clumping of the nerve roots. (1) Back pain Back pain laterality: unspecified Back pain location: back pain in unspecified location Chronicity: acute Qualified Code(s): M54.9 - Dorsalgia, unspecified
[2024-04-24] MEDS: fentaNYL citrate PF 100 MCG/2 ML VIAL ONE (10:18)
--- NOTE | 2024-04-24 12:01 | Ultrasound Report ---
ULTRASOUND RIGHT UPPER QUADRANT ABDOMEN CLINICAL HISTORY: Elevated hepatic transaminases. COMPARISON STUDY: Abdominal CT dated 04/22/2024. TECHNIQUE: Real-time, grayscale, and color flow sonography of the right upper quadrant of the abdomen was performed. Images are reviewed in the transverse and longitudinal planes. FINDINGS: Liver: The liver is cirrhotic in morphology and heterogeneous in echotexture. There is nodularity of the hepatic surface contour. There is no intrahepatic biliary ductal dilatation. The main portal vein is patent. Gallbladder: The gallbladder is normal in appearance. No gallstones are identified. There is no gallb ladder wall thickening or pericholecystic fluid. A sonographic Barbosa's sign is reportedly absent. Th e common bile duct measures up to 0.4 cm in diameter. Pancreas: Not visualized due to overlying bowel gas. Right kidney: Survey images of the right kidney demonstrate normal size and echotexture. There is no hydronephrosis. Ascites: There is trace perihepatic ascites. IMPRESSION: 1. The liver is cirrhotic in morphology and heterogeneous in echotexture. 2. No gallstones are seen. 3. Trace perihepatic ascites. 4. Nonvisualization of the pancreas. ACT 112: Negative or not required by law. Electronically signed by: Fortunato Wade M.D. 04/24/2024 12:00 PM
--- NOTE | 2024-04-24 13:07 | CT Scan Report ---
CT-guided bone marrow biopsy INDICATION: MDS PROCEDURE: Procedure and risks were explained. Informed consent was obtained. A final timeout was com pleted. The patient was placed prone on the CT exam table. The left gluteal region was prepped and dr aped in sterile fashion. 1% lidocaine was utilized for skin anesthesia. The patient received 50 mcg f entanyl IV. Utilizing CT guidance, an 11-gauge bone biopsy needle was advanced into the left iliac bone. Multiple aspirates were attempted, but this was a dry tap. One bone core was obtained and given to the lab fo r review. The needle was removed and Band-Aid applied. The patient tolerated the procedure well. Jennyfer l signs will be monitored on the floor. IMPRESSION: Bone marrow biopsy as above. Performed, dictated, and signed by Oseas Umana PA-C; to be co-signed by Dr. Devyn Estrada. Electronically signed by: Devyn Estrada M.D. 04/24/2024 1:25 PM
--- NOTE | 2024-04-24 13:55 | Hospitalist Progress Note ---
Date of Service April 24, 2024 Assessment & Plan (1) Back pain: Plan: -Back pain most likely musculoskeletal in nature -As needed pain meds. -Continue on prednisone 20 mg twice daily. -K-pad as needed. -Flexeril 5 mg 3 times daily. MRI lumbar spine showed multilevel degenerative changes, severe central canal narrowing. There is also abnormal marrow signal intensity seen throughout osseous structures. Ortho spine consulted. Did not recommend any intervention at this time. This can be addressed in the future per orthospine. (2) Muscle spasticity: Plan: -Patient most likely is having muscle spasms. -Pain meds as needed, Flexeril 5 mg 3 times a day. (3) Body aches: Plan: -Patient with bodyaches and abnormal lab abnormalities without unknown source of infection. Patient also had thrombocytopenia, acute kidney injury and elevated liver enzymes. He has been started empirically on p.o. doxycycline to cover tickborne illnesses although tick panel is negative. Respiratory bio fire is negative Lactic acid was 2.2 that improved with IV fluids No leukocytosis Blood cultures so far negative Considering a manifestation of sarcoidosis flare or side effect of methotrexate as an etiology of his presentation Consult rheumatology Consult pulmonology Elevated liver enzymes. Liver ultrasound showed cirrhotic liver Acute kidney injury improved Thrombocytopenia worse. Please see below (4) Thrombocytopenia: Plan: -Platelet count of 88 on admission, declining further Pathologist was concerned about MDS due to smear and flow cytometry results Hematology consulted Bone marrow biopsy done today 04/24. Results will be available next week Consult rheumatology (5) SHRUTHI (acute kidney injury): Plan: -Creatinine of 1.73 on admission. Resolved with hydration 1.34 today (6) Atypical chest pain: Plan: -Patient with atypical chest pain most likely result of muscle spasticity. -Troponin negative. -Continue to monitor on telemetry. (7) Sarcoidosis: Plan: -Patient with a chest CTA yesterday which showed no pulmonary embolus. Signs of patient's pulmonary sarcoidosis. -Did also show solid pulmonary nodules measuring up to 6 mm, follow-up was recommended. -On methotrexate, holding at this time. Consult pulmonary and rheumatology (8) Nephrolithiasis: Plan: -Patient had a abdominal and pelvis CT that showed showed nonobstructing bilateral nephrolithiasis. -UA showed 1+ blood in urine. No bacteria present -Renal ultrasound showed mobile debris within the urinary bladder as well as mild bladder wall thickening. (9) Enlarged prostate: Plan: -Abdominal and pelvis CT earlier today showed prostamegaly with decompressed urinary bladder. Plan Code status: Full code DVT ppx: Thrombocytopenia with a platelet count of 30 today. Will hold off on chemical prophylaxis. Admission and Anticipated Discharge Date Admission Date: April 23, 2024 Subjective Patient says that he is feeling a little bit better today in terms of pain control. But also noted that he has been using Dilaudid fairly frequently. Patient's is very concerned. She spoke to Dr. Byrne, his fence erector who recommended a pulmonology consult. A bone marrow biopsy was done today. Awaiting results. MRI lumbar spine showed some findings for which orthospine was consulted. Review of Systems Review of Systems: All systems reviewed & are unremarkable except as noted in Subjective Physical Exam Physical Exam: General: Sleepy, arousable. Patient just received an IV Dilaudid dose. He is able to hold a conversation but dozes off easily Heart: S1, S2/regular rate and rhythm, no murmur rubs or gallops Lungs: Clear to auscultation bilaterally. Normal effort Abdomen: Soft/nontender/nondistended. No hepatosplenomegaly Extremities: No clubbing/cyanosis. No edema Behavior: Appropriate, cooperative Results & Data Results & Data Vital Signs (Past 12 Hours) Vital Signs Temp Pulse Pulse Resp BP Pulse Ox O2 Del Method 04/24/24 11:17 36.7 C 62 16 152/94 H 92 Nasal Cannula 04/24/24 08:06 37.2 C 68 17 143/77 H 90 Room Air 04/24/24 08:00 65 04/24/24 08:00 Room Air 04/24/24 03:25 36.7 C 71 20 130/78 92 Room Air O2 Flow Rate 04/24/24 11:17 2 04/24/24 08:06 04/24/24 08:00 04/24/24 08:00 04/24/24 03:25 Laboratory Results Abnormal lab results 04/24/24 Range/Units 06:06 RBC 3.70 L (4.70-6.10) M/uL Hgb 11.2 L (14.0-18.0) g/dl Hct 32.4 L (42.0-52.0) % Plt Count 31 L D (130-400) K/uL Metamyelocytes # (Man) 0.21 H (0-0) K/uL Myelocytes # (Manual) 0.11 H (0-0) K/uL Other Cells # 3.40 H (0-0) K/uL Sodium 135 L (136-145) mmol/L Glucose 101 H (70-99(Fasting)) mg/dl Calcium 8.1 L (8.6-10.3) mg/dl AST 116 H (13-39) U/L Alkaline Phosphatase 395 H D (34-104) U/L Total Protein 5.8 L (6.0-8.3) gm/dl Globulin 2.1 L (2.5-4.0) gm/dl Diagnostic Findings Lumbar Spine MRI 04/23/24 10:52 LUMBAR SPINE MRI HISTORY: B/l back pain TECHNIQUE: Multiplanar multisequence MRI of the lumbar spine was performed without the use of contrast. COMPARISON: Abdomen and pelvis CT 04/22/2024. FINDINGS: For the purpose of the report the L5-S1 disc space will be located on axial image 28 of 31. Bilateral L5 spondylolysis with 5 mm of anterolisthesis again noted. There is 2 mm of retrolisthesis of L2 on L3. No acute fractures within the lumbar spine. There is abnormal marrow signal intensity seen throughout the visualized osseous structures. This may correspond to the patient's known history of sarcoidosis. Diffuse metastatic disease or underlying anemia would be difficult to exclude. Moderate disc space narrowing at L2-L3 and L5-S1. Mild disc space narrowing at L3-L4. The conus terminates at the L1 level. Mild disc space narrowing at T11- T12. Paravertebral soft tissues are unremarkable. L1-L2: No significant central canal or neural foraminal narrowing. L2-L3: Broad-based posterior disc bulge with mild ligamentum flavum hypertrophy. This results in moderate central canal narrowing with an AP diameter of 7 mm and moderate bilateral neural foraminal narrowing. The disc bulge abuts the transiting bilateral L3 nerve roots. L3-L4: Broad-based posterior disc bulge with ligamentum and facet hypertrophy resulting in moderate to severe central canal narrowing with an AP diameter of 5 mm. The disc bulge abuts the bilateral transiting L4 nerve roots. There is also moderate bilateral neural foraminal narrowing. L4-L5: Small broad-based posterior disc bulge with ligamentum and facet hypertrophy resulting in mild central canal narrowing. There is mild to moderate bilateral neural foraminal narrowing due to the disc bulge and facet hy pertrophy. L5-S1: No significant central canal narrowing. However, there is severe bilateral neural foraminal narrowing with impingement of the exiting nerve roots from the spondylolisthesis, small disc bulge, and facet hypertrophy. IMPRESSION: 1. Multilevel degenerative changes as described above most pronounced at the L3- L4 level which demonstrates moderate to severe central canal narrowing. 2. Bilateral L5 spondylolysis with associated grade 1 anterolisthesis. This results in severe bilateral neural foraminal narrowing at the L5-S1 level. 3. There is abnormal marrow signal intensity seen throughout the visualized osseous structures. This may correspond to the patient's known history of sarcoidosis. Diffuse metastatic disease or underlying anemia would be difficult to exclude. ACT 112: Negative or not required by law. Electronically signed by: Kp Tamez M.D. 04/23/2024 4:11 PM Bone Marrow Biopsy w/ CT 04/24/24 09:20 CT-guided bone marrow biopsy INDICATION: MDS PROCEDURE: Procedure and risks were explained. Informed consent was obtained. A final timeout was completed. The patient was placed prone on the CT exam table. The left gluteal region was prepped and draped in sterile fashion. 1% lidocaine was utilized for skin anesthesia. The patient received 50 mcg fentanyl IV. Utilizing CT guidance, an 11-gauge bone biopsy needle was advanced into the left iliac bone. Multiple aspirates were attempted, but this was a dry tap. One bone core was obtained and given to the lab for review. The needle was removed and Band-Aid applied. The patient tolerated the procedure well. Vital signs will be monitored on the floor. IMPRESSION: Bone marrow biopsy as above. Performed, dictated, and signed by Oseas Umana PA-C; to be co-signed by Dr. Devyn Estrada. Electronically signed by: Devyn Estrada M.D. 04/24/2024 1:25 PM Liver Ultrasound 04/24/24 09:31 ULTRASOUND RIGHT UPPER QUADRANT ABDOMEN CLINICAL HISTORY: Elevated hepatic transaminases. COMPARISON STUDY: Abdominal CT dated 04/22/2024. TECHNIQUE: Real-time, grayscale, and color flow sonography of the right upper quadrant of the abdomen was performed. Images are reviewed in the transverse and longitudinal planes. FINDINGS: Liver: The liver is cirrhotic in morphology and heterogeneous in echotexture. T here is nodularity of the hepatic surface contour. There is no intrahepatic biliary ductal dilatation. The main portal vein is patent. Gallbladder: The gallbladder is normal in appearance. No gallstones are identified. There is no gallbladder wall thickening or pericholecystic fluid. A sonographic Barbosa's sign is reportedly absent. The common bile duct measures up to 0.4 cm in diameter. Pancreas: Not visualized due to overlying bowel gas. Right kidney: Survey images of the right kidney demonstrate normal size and echotexture. There is no hydronephrosis. Ascites: There is trace perihepatic ascites. IMPRESSION: 1. The liver is cirrhotic in morphology and heterogeneous in echotexture. 2. No gallstones are seen. 3. Trace perihepatic ascites. 4. Nonvisualization of the pancreas. ACT 112: Negative or not required by law. Electronically signed by: Fortunato Wade M.D. 04/24/2024 12:00 PM PG Care Time/CCT Total # of Minutes Spent Total Time Spent with Patient: Total time spent is greater than 50% in coordination of care (as documented) at patient's floor/unit and/or counseling patient: Coding Level of Care Code 46734 SUB INP/OBS CARE 2/35MIN Diagnoses Back pain M54.9 Back pain laterality: unspecified Back pain location: back pain in unspecified location Chronicity: acute Muscle spasticity M62.838 Body aches R52 Thrombocytopenia D69.6 SHRUTHI (acute kidney injury) N17.9 Atypical chest pain R07.89 Sarcoidosis D86.9 Nephrolithiasis N20.0 Enlarged prostate N40.0 (1) Back pain Back pain laterality: unspecified Back pain location: back pain in unspecified location Chronicity: acute Qualified Code(s): M54.9 - Dorsalgia, unspecified
--- NOTE | 2024-04-24 14:42 | Pulmonary Consultation ---
Date of Consultation April 24, 2024 Assessment & Plan (1) Back pain: Back pain laterality: unspecified Back pain location: back pain in unspecified location Chronicity: acute Qualified Code(s): M54.9 - Dorsalgia, unspecified (2) Thrombocytopenia: (3) Anemia: (4) Sarcoidosis: Plan Impression: 58-year-old male with the history of stage II sarcoid on methotrexate admitted now with intractable back pain, abnormal spine imaging, thrombocytopenia and anemia with a peripheral smear showing nucleated red blood cells as well as circulating metamyelocytes and myelocytes with peripheral flow cytometry suggestive of MDS or potential lymphoproliferative disorder. There was concern about sarcoid causing marrow involvement which prompted a pulmonary consult. His imaging the chest shows no reactivation of sarcoid. Recommendations: Pulmonary sarcoid: Under good control. No imaging studies of the chest to suggest reactivation or recurrence. 2. At this point time would recommend holding his methotrexate. 3. Agree with hematology oncology and bone marrow biopsy. Sarcoid involvement of the marrow would typically not cause circulating blasts in the periphery. In addition, the bone marrow biopsy performed today preliminarily does not show granulomas. For sarcoid to cause this picture 1 would expect the marrow to be packed with granulomas or cause fibrosis and it appears that neither is the case. Would recommend continued search for alternative etiologies of the patient's complaints. If the final path were to show marrow involvement of the sarcoid, this would represent an unusual systemic manifestation of sarcoid which would require expert consultation. Pulmonary typically does not manage extrapulmonary sarcoid and would require correlation with a sarcoid expert or potentially rheumatology. The above recommendations and plan were discussed with the patient and his at bedside. Also case was discussed with hematology oncology and with the primary service. Pulmonary will sign off at this point in time. Feel free to contact us with questions or concerns History of Present Illness Attending Physician: Faviola Horvath MD History of Present Illness Asked by hospitalist to assist in evaluation management of this patient minute with intractable back pain and thrombocytopenia. The patient has a history of sarcoid. He was evaluated in [address] Cadet with a CT scan showing some pulmonary micronodules as well as adenopathy. He will underwent endobronchial ultrasound with transbronchial needle aspiration and had a single granuloma identified in 2 of the biopsy sites with some nodularity in the transbronchial biopsies. He was given a diagnosis of sarcoid and placed on prednisone for several weeks and then transitioned to weekly methotrexate which she has been maintained on. He has done well in the interim. He presented to the emergency room yesterday with complaints of intractable back pain radiating down his groin into his thighs. He is had multiple ER visits. He required narcotics to control his pain and he was admitted to the hospitalist service. He was found to be thrombocytopenic and imaging of the spine demonstrated abnormal marrow. He was seen by hematology oncology. Methotrexate was stopped and a bone marrow biopsy was ordered. There was concerned about potential marrow involvement from sarcoid and pulmonary was asked to evaluate the patient. The patient does not report any new respiratory symptoms. He is not coughing, wheezing, or expectorating any phlegm. He has not had any arthralgias or joint swelling. No skin rashes or lesions. No eye changes. No new neurological symptoms other than the back pain. Allergies Allergy/AdvReac Type Severity Reaction Status Date / Time No Known Allergies Allergy Verified 04/23/24 10:20 Home Medications Medication Instructions Recorded Confirmed Type fexofenadine 180 mg tablet 180 mg PO QAM 04/21/24 04/23/24 History folic acid 1 mg tablet 1 mg PO QAM 04/21/24 04/23/24 History methotrexate sodium 2.5 mg tablet 10 mg PO WK 04/21/24 04/23/24 History prednisone 20 mg tablet 20 mg PO BID 5 days #10 tabs 04/21/24 04/23/24 Rx cyclobenzaprine 5 mg tablet 5 mg PO TID PRN muscle spasm #30 04/22/24 04/23/24 Rx tabs oxycodone 5 mg tablet 5 mg PO Q8H PRN pain #11 tabs 04/22/24 04/23/24 Rx cholecalciferol (vitamin D3) 25 50 mcg PO DAILY 04/23/24 04/23/24 History mcg (1,000 unit) tablet Patient History Medical History No pertinent family history Shortness of breath Multiple pulmonary nodules Sarcoidosis Surgical History No pertinent past surgical history Social History Smoking Status: Never smoker Tobacco Type: Smokeless Tobacco (Dip or Chew) Cigarettes Per Day: 1/2; Second Hand Exposure: No; Do You Dip or Chew Tobacco: Yes; Hx Alcohol Use: No Hx Substance Use: No Preferred Language: Serbian Communication Ability: Effective Waste Machine Offbearer Required: No Beliefs That Will Affect Care: None Current Living Situation: Spouse Feels Safe at Home: Yes Assistive Devices: None Review of Systems Review of Systems: Please refer to admission H&P. No additions or deletions Physical Exam Constitutional: WD/WN, vitals as above Neck: trachea midline, no thyromegaly Respiratory: normal respiratory effort, lungs clear to auscultation Cardiovascular: RRR, no murmur, no edema Gastrointestinal (Abdomen): normal bowel sounds, soft, nontender, no hepatosplenomegaly Musculoskeletal: Extremities: extremities normal to inspection Skin: no rashes, warm and dry Neurologic: Nonfocal exam Lymphatic: no cervical lymphadenopathy Results & Data Results & Data Vital Signs (Past 12 Hours) Vital Signs Temp Pulse Pulse Resp BP Pulse Ox O2 Del Method 04/24/24 11:17 36.7 C 62 16 152/94 H 92 Nasal Cannula 04/24/24 08:06 37.2 C 68 17 143/77 H 90 Room Air 04/24/24 08:00 65 04/24/24 08:00 Room Air 04/24/24 03:25 36.7 C 71 20 130/78 92 Room Air O2 Flow Rate 04/24/24 11:17 2 04/24/24 08:06 04/24/24 08:00 04/24/24 08:00 04/24/24 03:25 Critical Care Results & Data Vital Signs (Past 12 Hours) Vital Signs Temp Pulse Pulse Resp BP Pulse Ox O2 Del Method 04/24/24 11:17 36.7 C 62 16 152/94 H 92 Nasal Cannula 04/24/24 08:06 37.2 C 68 17 143/77 H 90 Room Air 04/24/24 08:00 65 04/24/24 08:00 Room Air 04/24/24 03:25 36.7 C 71 20 130/78 92 Room Air O2 Flow Rate 04/24/24 11:17 2 04/24/24 08:06 04/24/24 08:00 04/24/24 08:00 04/24/24 03:25 Lab & Micro Results (Past 24 Hours) RBC 3.70 M/uL (4.70-6.10) L 04/24/24 WBC 10.64 K/ul (4.8-10.8) 04/24/24 Hgb 11.2 g/dl (14.0-18.0) L 04/24/24 Hct 32.4 % (42.0-52.0) L 04/24/24 MCV 87.6 fL (80.0-100.0) 04/24/24 MCH 30.3 pg (25.0-34.0) 04/24/24 MCHC 34.6 g/dL (32.0-36.0) 04/24/24 RDW Standard Deviation 44.0 fL (36.4-46.3) 04/24/24 RDW Coefficient of Variation 14.2 % (11.5-14.5) 04/24/24 Plt Count 31 K/uL (130-400) L 04/24/24 MPV 11.4 fL (9.4-12.4) 04/24/24 Nucleated Red Blood Cells % (auto) 1.1 % 04/24 Nucleated RBC Absolute Count (auto) 0.12 K/uL (0.00-0.12) 0 04/24/24 ANC 3.30 K/uL (1.4-6.5) 04/24/24 ALC 3.30 K/uL (1.2-3.4) 04/24/24 Neutrophils % (Manual) 31 % 04/24/24 Lymphocytes % (Manual) 31 % 04/24/24 Monocytes % (Manual) 1 % 04/24/24 Eosinophils % (Manual) 2 % 04/24/24 Metamyelocytes % (manual) 2 % 04/24/24 Myelocytes % (Manual) 1 % 04/24/24 Other Cells % 32 % 04/24/24 Neutrophils # (Manual) 3.30 K/uL (1.40-6.50) 04/24/24 Lymphocytes # (Manual) 3.30 K/uL (1.2-3.4) 04/24/24 Monocytes # (Manual) 0.11 K/uL (0.11-0.59) 04/24/24 Eosinophils # (Manual) 0.21 K/uL (0-0.50) 04/24/24 Metamyelocytes # (Manual) 0.21 K/uL (0-0) H 04/24/24 Myelocytes # (Manual) 0.11 K/uL (0-0) H 04/24/24 Other Cells # 3.40 K/uL (0-0) H 04/24/24 Na 135 mmol/L (136-145) L 04/24/24 K 4.1 mmol/L (3.5-5.1) 04/24/24 Cl 101 mmol/L (98-107) 04/24/24 CO2 29 mmol/L (21-32) 04/24/24 Anion Gap 5 (3-11) 04/24/24 BUN 21 mg/dl (6-23) 04/24/24 Creatinine 1.34 mg/dl (0.6-1.4) 04/24/24 Estimated GFR ( Amer) 67.2 ml/min 04/24/24 Estimated GFR (Non-Af Amer) 58.0 ml/min 04/24/24 BUN/Creatinine Ratio 15.7 (10-20) 04/24/24 Glu 101 mg/dl (70-99(Fasting)) H 04/24/24 Ca 8.1 mg/dl (8.6-10.3) L 04/24/24 Total Bilirubin 0.9 mg/dl (0.2-1.0) 04/24/24 AST 116 U/L (13-39) H 04/24/24 ALT 47 U/L (7-52) 04/24/24 Alkaline Phosphatase 395 U/L (34-104) H 04/24/24 TP 5.8 gm/dl (6.0-8.3) L 04/24/24 Albumin 3.7 gm/dl (3.4-5.0) 04/24/24 Globulin 2.1 gm/dl (2.5-4.0) L 04/24/24 Albumin/Globulin Ratio 1.8 (0.9-2) 04/24/24 Calcium Level 8.1 mg/dl (8.6-10.3) L 04/24/24 06:06 Microbiology 04/23/24 01:35 Aerobic Blood Culture - Preliminary Blood No growth in Aerobic bottle after 24 hours. Anaerobic Blood Culture - Preliminary No growth in Anaerobic bottle after 24 hours. Diagnostic Findings (Past 24 Hours) Lumbar Spine MRI 04/23/24 10:52 LUMBAR SPINE MRI HISTORY: B/l back pain TECHNIQUE: Multiplanar multisequence MRI of the lumbar spine was performed without the use of contrast. COMPARISON: Abdomen and pelvis CT 04/22/2024. FINDINGS: For the purpose of the report the L5-S1 disc space will be located on axial image 28 of 31. Bilateral L5 spondylolysis with 5 mm of anterolisthesis again noted. There is 2 mm of retrolisthesis of L2 on L3. No acute fractures within the lumbar spine. There is abnormal marrow signal intensity seen throughout the visualized osseous structures. This may correspond to the patient's known history of sarcoidosis. Diffuse metastatic disease or underlying anemia would be difficult to exclude. Moderate disc space narrowing at L2-L3 and L5-S1. Mild disc space narrowing at L3-L4. The conus terminates at the L1 level. Mild disc space narrowing at T11- T12. Paravertebral soft tissues are unremarkable. L1-L2: No significant central canal or neural foraminal narrowing. L2-L3: Broad-based posterior disc bulge with mild ligamentum flavum hypertrophy. This results in moderate central canal narrowing with an AP diameter of 7 mm and moderate bilateral neural foraminal narrowing. The disc bulge abuts the transiting bilateral L3 nerve roots. L3-L4: Broad-based posterior disc bulge with ligamentum and facet hypertrophy resulting in moderate to severe central canal narrowing with an AP diameter of 5 mm. The disc bulge abuts the bilateral transiting L4 nerve roots. There is also moderate bilateral neural foraminal narrowing. L4-L5: Small broad-based posterior disc bulge with ligamentum and facet hypertrophy resulting in mild central canal narrowing. There is mild to moderate bilateral neural foraminal narrowing due to the disc bulge and facet hypertrophy. L5-S1: No significant central canal narrowing. However, there is severe bilateral neural foraminal narrowing with impingement of the exiting nerve roots from the spondylolisthesis, small disc bulge, and facet hypertrophy. IMPRESSION: 1. Multilevel degenerative changes as described above most pronounced at the L3- L4 level which demonstrates moderate to severe central canal narrowing. 2. Bilateral L5 spondylolysis with associated grade 1 anterolisthesis. This results in severe bilateral neural foraminal narrowing at the L5-S1 level. 3. There is abnormal marrow signal intensity seen throughout the visualized osseous structures. This may correspond to the patient's known history of sarcoidosis. Diffuse metastatic disease or underlying anemia would be difficult to exclude. ACT 112: Negative or not required by law. Electronically signed by: Kp Tamez M.D. 04/23/2024 4:11 PM Bone Marrow Biopsy w/ CT 04/24/24 09:20 CT-guided bone marrow biopsy INDICATION: MDS PROCEDURE: Procedure and risks were explained. Informed consent was obtained. A final timeout was completed. The patient was placed prone on the CT exam table. The left gluteal region was prepped and draped in sterile fashion. 1% lidocaine was utilized for skin anesthesia. The patient received 50 mcg fentanyl IV. Utilizing CT guidance, an 11-gauge bone biopsy needle was advanced into the left iliac bone. Multiple aspirates were attempted, but this was a dry tap. One bone core was obtained and given to the lab for review. The needle was removed and Band-Aid applied. The patient tolerated the procedure well. Vital signs will be monitored on the floor. IMPRESSION: Bone marrow biopsy as above. Performed, dictated, and signed by Oseas Umana PA-C; to be co-signed by Dr. Devyn Estrada. Electronically signed by: Devyn Estrada M.D. 04/24/2024 1:25 PM Liver Ultrasound 04/24/24 09:31 ULTRASOUND RIGHT UPPER QUADRANT ABDOMEN CLINICAL HISTORY: Elevated hepatic transaminases. COMPARISON STUDY: Abdominal CT dated 04/22/2024. TECHNIQUE: Real-time, grayscale, and color flow sonography of the right upper quadrant of the abdomen was performed. Images are reviewed in the transverse and longitudinal planes. FINDINGS: Liver: The liver is cirrhotic in morphology and heterogeneous in echotexture. There is nodularity of the hepatic surface contour. There is no intrahepatic biliary ductal dilatation. The main portal vein is patent. Gallbladder: The gallbladder is normal in appearance. No gallstones are identified. There is no gallbladder wall thickening or pericholecystic fluid. A sonographic Barbosa's sign is reportedly absent. The common bile duct measures up to 0.4 cm in diameter. Pancreas: Not visualized due to overlying bowel gas. Right kidney: Survey images of the right kidney demonstrate normal size and echotexture. There is no hydronephrosis. Ascites: There is trace perihepatic ascites. IMPRESSION: 1. The liver is cirrhotic in morphology and heterogeneous in echotexture. 2. No gallstones are seen. 3. Trace perihepatic ascites. 4. Nonvisualization of the pancreas. ACT 112: Negative or not required by law. Electronically signed by: Fortunato Wade M.D. 04/24/2024 12:00 PM I & O Totals 24 Hours 04/23/24 04/24/24 04/25/24 06:59 06:59 06:59 Intake Total 2976.667 / 2976.667 3414.584 / 3414.584 910.417 / 910.417 Output Total 125 / 125 2650 / 2650 550 / 550 Balance 2851.667 / 2851.667 764.584 / 764.584 360.417 / 360.417 Cumulative 04/22/24 22:43 thru 04/24/24 13:44 Intake Total 7301.668 Output Total 3325 Balance 3976.668 RT Ventilator Mngmt (Last Documented) Ventilator Ordered Settings Respiratory Rate 16 04/24/24 11:17 Ventilator - PT Measurements Respiratory Rate 16 PG Care Time/CCT Total # of Minutes Spent Total Time Spent with Patient: Total time spent is greater than 50% in coordination of care (as documented) at patient's floor/unit and/or counseling patient: Coding Level of Care Code 62309 IN/OBS CONSULT LVL 5,80M Diagnoses Back pain M54.9 Back pain laterality: unspecified Back pain location: back pain in unspecified location Chronicity: acute Thrombocytopenia D69.6 Anemia D64.9 Sarcoidosis D86.9
[2024-04-24] MEDS: POLYETHYLENE (MIRALAX) 17 GM PACK PO SCH (16:49)
[2024-04-24] MEDS: oxyCODONE HCL 15 MG TABCR (OxyCONTIN) PO SCH (16:49)
--- NOTE | 2024-04-24 19:34 | Rheumatology Consultation ---
Rheumatology Consultation DOS April 24, [address] Horvath Reason for Consultation Pain, abn CBC, hx of sarcoidosis Assessment & Plan (1) Myalgia: (2) Arthralgia: Joint pain location: unspecified Qualified Code(s): M25.50 - Pain in unspecified joint (3) Sarcoidosis: (4) Abnormal CBC: (5) Abnormal MRI, lumbar spine: Plan This is not a typical presentation to suggest reactivation of sarcoidosis. Currently, I do not identify inflammatory joint features that could suggest an acute sarcoid arthritis. CK level also is normal and typically, CK elevation will be seen with infiltrative myopathic disease. Could consider aldolase with next blood draw Agree with input provided by pulmonology. Await further evaluation of bone marrow If bone marrow evaluation is inconclusive, it will be necessary to determine the etiology of the MRI findings on the L-spine such as via biopsy Agree with holding methotrexate No acute DMARD therapies indicated at this time (such as infliximab, adalimumab, azathioprine, etc.) Patient noting some improvement with current analgesic regimen which includes steroids. Could consider trial of Solu-Medrol in place of prednisone if not continuing to improve overnight into the morning of 04/25 Await bone marrow results History of Present Illness Attending Physician: Faviola Horvath MD History of Present Illness This is a 58-year-old gentleman who was in his usual state of health until 04/21 when he developed vague chest discomfort while eating. He thought possibly he had a gas bubble in his chest. However, symptoms escalated and he presented to the ER. He was told that he had inflammation around his heart and was given steroids and discharged to home. The next day, he began experiencing low back discomfort around lunchtime. He called the PA nurse who recommended ER evaluation. He was told that he likely had kidney stones and was given oxycodone as well as a muscle relaxant. Shortly thereafter, he began developing pain in the low back throughout his entire lower legs. Pain escalated prompting him to return to the ER on the yard stocker hours of 04/23/2024. At that time, he was admitted for further evaluation. Blood work at the time of admission revealed thrombocytopenia with an abnormal cell differential including nucleated RBCs as well as metamyelocytes and myelocytes. In addition, acute kidney injury was identified via elevated creatinine. Based on abnormal blood count, patient underwent bone marrow biopsy. Results are pending. He recalls being diagnosed with sarcoidosis approximately 3 to 4 years ago. He had an abnormal eye examination in 2020 which raise concern for a systemic inflammatory process. 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 Patient recalls receiving injection into the eye which helped resolve the blurry vision. Subsequent evaluation revealed pulmonary nodules and endoscopic bronchial biopsy was used to identify granulomatous change and a diagnosis of sarcoidosis was made. Patient recalls being placed on steroids and approximately 1 year ago, he was placed on methotrexate in the form of 10 mg weekly. Patient recalls having outpatient blood work through PCP in December and per his recollection, counts were fine. During one of his recent trips to the ER leading up to this admission, he recalls that his right knee felt feverish but he denies additional joint swelling. His hands feel a bit full but he denies well-defined, focal joint swelling. He has had ongoing pain in the hips and shoulders. He has not been able to identify what makes his symptoms worse but feels as if medications have been helping reduce his pain. He has been placed on a pain regimen that he recalls receiving every 3 hours. He notes discomfort is in the muscles and joints. He also feels as if he has global weakness. He has felt sweaty. Previously, he was experiencing pain from his head down to his feet and ankles as if there were contractions in his body. He has also been placed on prednisone 20 mg twice daily. Allergies Allergy/AdvReac Type Severity Reaction Status Date / Time No Known Allergies Allergy Verified 04/23/24 10:20 Home Medications Medication Instructions Recorded Confirmed Type fexofenadine 180 mg tablet 180 mg PO QAM 04/21/24 04/23/24 History folic acid 1 mg tablet 1 mg PO QAM 04/21/24 04/23/24 History methotrexate sodium 2.5 mg tablet 10 mg PO WK 04/21/24 04/23/24 History prednisone 20 mg tablet 20 mg PO BID 5 days #10 tabs 04/21/24 04/23/24 Rx cyclobenzaprine 5 mg tablet 5 mg PO TID PRN muscle spasm #30 04/22/24 04/23/24 Rx tabs oxycodone 5 mg tablet 5 mg PO Q8H PRN pain #11 tabs 09/04/24 09/05/24 Rx cholecalciferol (vitamin D3) 25 50 mcg PO DAILY 04/23/24 04/23/24 History mcg (1,000 unit) tablet Patient History Medical History No pertinent family history Shortness of breath Multiple pulmonary nodules Sarcoidosis Surgical History No pertinent past surgical history Social History Smoking Status: Never smoker Tobacco Type: Smokeless Tobacco (Dip or Chew) Cigarettes Per Day: 1/2; Second Hand Exposure: No; Do You Dip or Chew Tobacco: Yes; Hx Alcohol Use: No Hx Substance Use: No Preferred Language: Mexican Communication Ability: Effective Roll Handler Required: No Beliefs That Will Affect Care: None Current Living Situation: Spouse Other Information That Helps Us Care for You: No Feels Safe at Home: Yes Safety Concerns: Feels Safe At This Time Assistive Devices: None Review of Systems Review of Systems: Denies fevers or chills. His vague chest discomfort is better. He has had a difficulty with dry cough. Nonproductive. Denies nausea or vomiting. Denies diarrhea or constipation. He has had some difficulty voiding and was recently told that he has an enlarged prostate. Denies dark or black stools. Physical Exam Physical Exam: General: Alert and oriented. No acute distress Eyes: Pupils are equal. Extraocular muscles intact. No obvious scleritis Mouth: No oral sores Neck: Supple, no adenopathy Cardiovascular: Heart regular, no rubs Pulmonary: Clear to auscultation bilaterally Abdomen: Soft, nontender. Positive bowel sounds. Extremities: No pitting edema noted Skin: No purpuric lesions identified. No erythema nodosum lesions at the lower extremities. Musculoskeletal: No synovitis. No effusions. Anterior hip discomfort noted with motion testing. No knee effusions appreciated. Do not identify dactylitis. No point tenderness when palpating thoracic and lumbar spine. Results & Data Vital Signs (Past 12 Hours) Vital Signs Temp Pulse Pulse Resp BP Pulse Ox O2 Del Method 04/24/24 15:25 37.5 C 68 18 171/103 H 93 Nasal Cannula 04/24/24 15:03 68 04/24/24 11:17 36.7 C 62 16 152/94 H 92 Nasal Cannula 04/24/24 08:06 37.2 C 68 17 143/77 H 90 Room Air 04/24/24 08:00 65 04/24/24 08:00 Room Air O2 Flow Rate 04/24/24 15:25 2 04/24/24 15:03 04/24/24 11:17 2 04/24/24 08:06 04/24/24 08:00 04/24/24 08:00 Laboratory Results Reviewed lab data Diagnostic Findings MRI lumbar spine: FINDINGS: For the purpose of the report the L5-S1 disc space will be located on axial image of . Bilateral L5 spondylolysis with 5 mm of anterolisthesis again noted. There is 2 mm of retrolisthesis of L2 on L3. No acute fractures within the lumbar spine. There is abnormal marrow signal intensity seen throughout the visualized osseous structures. This may correspond to the patient's known history of sarcoidosis. Diffuse metastatic disease or underlying anemia would be difficult to exclude. Moderate disc space narrowing at L2-L3 and L5-S1. Mild disc space narrowing at L3-L4. The conus terminates at the L1 level. Mild disc space narrowing at T11- T12. Paravertebral soft tissues are unremarkable. L1-L2: No significant central canal or neural foraminal narrowing. L2-L3: Broad-based posterior disc bulge with mild ligamentum flavum hypertrophy. This results in moderate central canal narrowing with an AP diameter of 7 mm and moderate bilateral neural foraminal narrowing. The disc bulge abuts the transiting bilateral L3 nerve roots. L3-L4: Broad-based posterior disc bulge with ligamentum and facet hypertrophy resulting in moderate to severe central canal narrowing with an AP diameter of 5 mm. The disc bulge abuts the bilateral transiting L4 nerve roots. There is also moderate bilateral neural foraminal narrowing. L4-L5: Small broad-based posterior disc bulge with ligamentum and facet hypertrophy resulting in mild central canal narrowing. There is mild to moderate bilateral neural foraminal narrowing due to the disc bulge and facet hypertrophy. L5-S1: No significant central canal narrowing. However, there is severe bilate ral neural foraminal narrowing with impingement of the exiting nerve roots from the spondylolisthesis, small disc bulge, and facet hypertrophy. IMPRESSION: 1. Multilevel degenerative changes as described above most pronounced at the L3- L4 level which demonstrates moderate to severe central canal narrowing. 2. Bilateral L5 spondylolysis with associated grade 1 anterolisthesis. This results in severe bilateral neural foraminal narrowing at the L5-S1 level. 3. There is abnormal marrow signal intensity seen throughout the visualized osseous structures. This may correspond to the patient's known history of sarcoidosis. Diffuse metastatic disease or underlying anemia would be difficult to exclude. Results CMP Results: Na 135 mmol/L (136-145) L 04/24/24 K 4.1 mmol/L (3.5-5.1) 04/24/24 Cl 101 mmol/L (98-107) 04/24/24 CO2 29 mmol/L (21-32) 04/24/24 Anion Gap 5 (3-11) 04/24/24 BUN 21 mg/dl (6-23) 04/24/24 Creatinine 1.34 mg/dl (0.6-1.4) 04/24/24 Estimated GFR ( Amer) 67.2 ml/min 04/24/24 Estimated GFR (Non-Af Amer) 58.0 ml/min 04/24/24 BUN/Creatinine Ratio 15.7 (10-20) 04/24/24 Glu 101 mg/dl (70-99(Fasting)) H 04/24/24 Ca 8.1 mg/dl (8.6-10.3) L 04/24/24 Total Bilirubin 0.9 mg/dl (0.2-1.0) 04/24/24 Direct Bilirubin 0.1 mg/dl (0-0.2) 04/30/23 AST 116 U/L (13-39) H 04/24/24 ALT 47 U/L (7-52) 04/24/24 Alkaline Phosphatase 395 U/L (34-104) H 04/24/24 TP 5.8 gm/dl (6.0-8.3) L 04/24/24 Albumin 3.7 gm/dl (3.4-5.0) 04/24/24 Globulin 2.1 gm/dl (2.5-4.0) L 04/24/24 Albumin/Globulin Ratio 1.8 (0.9-2) 04/24/24 Results Rheum Results - ESR: ESR 10 mm/hr (0-20) 07/24/21 13:24 Results Rheum Results - CRP: CRP 2.50 mg/dl (0-0.5) H 04/23/24 06:09 Results CBC w Diff Results: RBC 3.70 M/uL (4.70-6.10) L 04/24/24 WBC 10.64 K/ul (4.8-10.8) 04/24/24 Hgb 11.2 g/dl (14.0-18.0) L 04/24/24 Hct 32.4 % (42.0-52.0) L 04/24/24 MCV 87.6 fL (80.0-100.0) 04/24/24 MCH 30.3 pg (25.0-34.0) 04/24/24 MCHC 34.6 g/dL (32.0-36.0) 04/24/24 RDW Standard Deviation 44.0 fL (36.4-46.3) 04/24/24 RDW Coefficient of Variation 14.2 % (11.5-14.5) 04/24/24 Plt Count 31 K/uL (130-400) L 04/24/24 MPV 11.4 fL (9.4-12.4) 04/24/24 Nucleated Red Blood Cells % (auto) 1.1 % 04/24 Nucleated RBC Absolute Count (auto) 0.12 K/uL (0.00-0.12) 0 04/24/24 Neutrophils (%) (Auto) 63.3 % 09/16/23 Lymphocytes (%) (Auto) 18.9 % 09/16/23 Monocytes # (Auto) 0.60 K/uL (0.11-0.59) H 09/16/23 Eosinophils # (Auto) 0.07 K/uL (0.00-0.50) 09/16/23 Immature Granulocyte % (Auto) 1.3 % 09/16/23 Neutrophils # (Auto) 2.88 K/uL (1.40-6.50) 09/16/23 Lymphocytes # (Auto) 0.86 K/uL (1.20-3.40) L 09/16/23 Monocytes # (Auto) 0.60 K/uL (0.11-0.59) H 09/16/23 Eosinophils # (Auto) 0.07 K/uL (0.00-0.50) 09/16/23 Basophils # (Auto) 0.08 K/uL (0.00-0.20) 09/16/23 Immature Granulocyte # (Auto) 0.06 K/uL (0.01-0.20) 4 ANC 3.30 K/uL (1.4-6.5) 04/24/24 ALC 3.30 K/uL (1.2-3.4) 04/24/24 Neutrophils % (Manual) 31 % 04/24/24 Lymphocytes % (Manual) 31 % 04/24/24 Monocytes % (Manual) 1 % 04/24/24 Eosinophils % (Manual) 2 % 04/24/24 Basophils % (Manual) 1 % 04/22/24 Metamyelocytes % (manual) 2 % 04/24/24 Myelocytes % (Manual) 1 % 04/24/24 Other Cells % 32 % 04/24/24 Neutrophils # (Manual) 3.30 K/uL (1.40-6.50) 04/24/24 Lymphocytes # (Manual) 3.30 K/uL (1.2-3.4) 04/24/24 Monocytes # (Manual) 0.11 K/uL (0.11-0.59) 04/24/24 Eosinophils # (Manual) 0.21 K/uL (0-0.50) 04/24/24 Basophils # (Manual) 0.10 K/uL (0-0.2) 04/22/24 Metamyelocytes # (Manual) 0.21 K/uL (0-0) H 04/24/24 Myelocytes # (Manual) 0.11 K/uL (0-0) H 04/24/24 Other Cells # 3.40 K/uL (0-0) H 04/24/24 Red Blood Cell Morphology Unremarkable 04/23/24 PG Care Time/CCT Total # of Minutes Spent Total Time Spent with Patient: Total time spent is greater than 50% in coordination of care (as documented) at patient's floor/unit and/or counseling patient:80 Coding Level of Care Code 47394 IN/OBS CONSULT LVL 5,80M Diagnoses Myalgia M79.10 Arthralgia, unspecified joint M25.50 Joint pain location: unspecified Sarcoidosis D86.9 Abnormal CBC R79.89 Abnormal MRI, lumbar spine R93.7
[2024-04-24] MEDS: HYDROmorphone INJ 0.5 MG/0.5 ML SYR IV PRN (19:41)
[2024-04-24] MEDS: DOCUSATE SODIUM 100 MG CAP PO SCH (21:39)
[2024-04-25 08:07] LABS: Hematocrit (blood only) 34.9 % (42.0-52.0); Hemoglobin 12.1 g/dl (14.0-18.0); Mean Corpuscular Hemoglobin 30.3 pg (25.0-34.0); Mean Corpuscular Hgb Conc 34.7 g/dL (32.0-36.0); Mean Corpuscular Volume 87.5 fL (80.0-100.0); Mean Platelet Volume 13.2 fL (9.4-12.4); Nucleated RBC % (auto) 2.2 %; Platelet Count 23 K/uL (130-400); RDW Coefficient of Variation 13.9 % (11.5-14.5); RDW Standard Deviation 43.9 fL (36.4-46.3); Red Blood Count 3.99 M/uL (4.70-6.10); White Blood Count 9.05 K/ul (4.8-10.8)
[2024-04-25] MEDS: HYDROmorphone INJ 0.5 MG/0.5 ML SYR IV PRN ×2 (08:10→19:56)
[2024-04-25 08:15] LABS: Albumin Globulin Ratio 1.7 (0.9-2); Albumin Level 3.8 gm/dl (3.4-5.0); BUN Creatinine Ratio 19.8 (10-20); Bilirubin,Total 1.4 mg/dl (0.2-1.0); Calcium 8.5 mg/dl (8.6-10.3); Creatinine Clr Calc Pharmacy 70.5 ml/min; Est GFR (African American) 69.1 ml/min; Est GFR (Non-African American) 59.6 ml/min; Globulin 2.3 gm/dl (2.5-4.0); Potassium 4.4 mmol/L (3.5-5.1); Total Protein 6.1 gm/dl (6.0-8.3)
[2024-04-25 08:36] LABS: ANC (manual) 1.99 K/uL (1.4-6.5); Eosinophils # (manual) 0.54 K/uL (0-0.50); Eosinophils % (manual) 6 %; Lymphocytes % (manual) 32 %; Metamyelocytes # (manual) 0.09 K/uL (0-0); Metamyelocytes % (manual) 1 %; Monocytes # (manual) 0.54 K/uL (0.11-0.59); Monocytes % (manual) 6 %; Neutrophils # (manual) 1.99 K/uL (1.40-6.50); Neutrophils % (manual) 22 %; Other Cell Type % 33 %; Other Cells # (manual) 2.99 K/uL (0-0)
--- NOTE | 2024-04-25 13:32 | Hospitalist Progress Note ---
Date of Service April 25, 2024 Assessment & Plan (1) Back pain: Plan: -Back pain most likely musculoskeletal in nature -As needed pain meds. -Continue on prednisone 20 mg twice daily. -K-pad as needed. -Flexeril 5 mg 3 times daily. Started on OxyContin with improvement Started oxycodone for mild to moderate breakthrough pain Continue Dilaudid IV for severe breakthrough pain Started on a bowel regimen to prevent opioid-induced constipation MRI lumbar spine showed multilevel degenerative changes, severe central canal narrowing. There is also abnormal marrow signal intensity seen throughout osseous structures. Ortho spine consulted. Did not recommend any intervention at this time. This can be addressed in the future per orthospine. If the bone marrow biopsy result is unrevealing, we may need to get a sample from the lumbar spine eventually. For now we will wait on the bone marrow results. (2) Muscle spasticity: Plan: -Pain meds as needed, Flexeril 5 mg 3 times a day. (3) Body aches: Plan: -Patient with bodyaches and abnormal lab abnormalities without unknown source of infection. Patient also had thrombocytopenia, acute kidney injury and elevated liver enzymes. He has been started empirically on p.o. doxycycline to cover tickborne illnesses although tick panel is negative. Respiratory bio fire is negative Lactic acid was 2.2 that improved with IV fluids No leukocytosis Blood cultures negative Considering a manifestation of sarcoidosis flare or side effect of methotrexate as an etiology of his presentation Pulmonology and rheumatology involved. Waiting for bone marrow biopsy report Elevated liver enzymes. Liver ultrasound showed cirrhotic liver Acute kidney injury resolved Thrombocytopenia worse. Please see below (4) Thrombocytopenia: Plan: -Platelet count of 88 on admission, continues to decline Today 23 No bleeding so far Will transfuse platelets if platelet count is below 10 or starts bleeding Transfusion consent obtained and in chart Pathologist was concerned about MDS due to smear and flow cytometry results Hematology consulted Bone marrow biopsy done today 04/24. Results will be available next week Mechanical Integrity Engineer on board (5) SHRUTHI (acute kidney injury): Plan: -Creatinine of 1.73 on admission. Resolved with hydration (6) Atypical chest pain: Plan: -Patient with atypical chest pain most likely result of muscle spasticity. -Troponin negative. -Continue to monitor on telemetry. (7) Sarcoidosis: Plan: -Patient with a chest CTA yesterday which showed no pulmonary embolus. Signs of patient's pulmonary sarcoidosis. -Did also show solid pulmonary nodules measuring up to 6 mm, follow-up was recommended. -On methotrexate, holding at this time. Pulmonology and rheumatology on board. No solid plan at this time other than waiting for bone marrow biopsy results. (8) Nephrolithiasis: Plan: -Patient had a abdominal and pelvis CT that showed showed nonobstructing bilateral nephrolithiasis. -UA showed 1+ blood in urine. No bacteria present -Renal ultrasound showed mobile debris within the urinary bladder as well as mild bladder wall thickening. (9) Enlarged prostate: Plan: -Abdominal and pelvis CT earlier today showed prostamegaly with decompressed urinary bladder. Plan Code status: Full code DVT ppx: Thrombocytopenia with a platelet count of 20 today. Will hold off on chemical prophylaxis. Admission and Anticipated Discharge Date Admission Date: April 23, 2024 Subjective Patient feels better overall. His pain is better controlled. He did not r equire IV Dilaudid through the night. This morning he is able to have a conversation with me and is smiling. Although his pain is still there and is still requiring IV Dilaudid, just much better controlled Review of Systems Review of Systems: All systems reviewed & are unremarkable except as noted in Subjective Physical Exam Physical Exam: General: Awake, conversant. Smiling. Heart: S1, S2/regular rate and rhythm, no murmur rubs or gallops Lungs: Clear to auscultation bilaterally. Normal effort Abdomen: Soft/nontender/nondistended. No hepatosplenomegaly Extremities: No clubbing/cyanosis. No edema Behavior: Appropriate, cooperative Results & Data Results & Data Vital Signs (Past 12 Hours) Vital Signs Temp Pulse Pulse Resp BP Pulse Ox O2 Del Method 04/25/24 12:00 36.8 C 89 18 162/95 H 90 Room Air 04/25/24 07:37 36.7 C 56 L 18 139/90 90 Room Air 04/25/24 07:24 56 L 04/25/24 04:17 36.8 C 63 18 151/92 H 93 Room Air Laboratory Results Abnormal lab results 04/25/24 Range/Units 06:53 RBC 3.99 L (4.70-6.10) M/uL Hgb 12.1 L (14.0-18.0) g/dl Hct 34.9 L (42.0-52.0) % Plt Count 23 L* (130-400) K/uL MPV 13.2 H (9.4-12.4) fL Absolute Nucleated RBC 0.20 H (0.00-0.12) K/uL Eosinophils # (Manual) 0.54 H (0-0.50) K/uL Metamyelocytes # (Man) 0.09 H (0-0) K/uL Other Cells # 2.99 H (0-0) K/uL BUN 26 H (6-23) mg/dl Glucose 104 H (70-99(Fasting)) mg/dl Calcium 8.5 L (8.6-10.3) mg/dl Total Bilirubin 1.4 H D (0.2-1.0) mg/dl AST 92 H (13-39) U/L Alkaline Phosphatase 396 H (34-104) U/L Globulin 2.3 L (2.5-4.0) gm/dl Diagnostic Findings Bone Marrow Biopsy w/ CT 04/24/24 09:20 CT-guided bone marrow biopsy INDICATION: MDS PROCEDURE: Procedure and risks were explained. Informed consent was obtained. A final timeout was completed. The patient was placed prone on the CT exam table. The left gluteal region was prepped and draped in sterile fashion. 1% lidocaine was utilized for skin anesthesia. The patient received 50 mcg fentanyl IV. Utilizing CT guidance, an 11-gauge bone biopsy needle was advanced into the left iliac bone. Multiple aspirates were attempted, but this was a dry tap. One bone core was obtained and given to the lab for review. The needle was removed and Band-Aid applied. The patient tolerated the procedure well. Vital signs will be monitored on the floor. IMPRESSION: Bone marrow biopsy as above. Performed, dictated, and signed by Oseas Umana PA-C; to be co-signed by Dr. Devyn Estrada. Electronically signed by: Dveyn Estrada M.D. 04/24/2024 1:25 PM PG Care Time/CCT Total # of Minutes Spent Total Time Spent with Patient: Total time spent is greater than 50% in coordination of care (as documented) at patient's floor/unit and/or counseling patient: Coding Level of Care Code 13525 SUB INP/OBS CARE 2/35MIN Diagnoses Back pain M54.9 Back pain laterality: unspecified Back pain location: back pain in unspecified location Chronicity: acute Muscle spasticity M62.838 Body aches R52 Thrombocytopenia D69.6 SHRUTHI (acute kidney injury) N17.9 Atypical chest pain R07.89 Sarcoidosis D86.9 Nephrolithiasis N20.0 Enlarged prostate N40.0 (1) Back pain Back pain laterality: unspecified Back pain location: back pain in unspecified location Chronicity: acute Qualified Code(s): M54.9 - Dorsalgia, unspecified
[2024-04-25] MEDS: oxyCODONE HCL IR 5 MG TAB (IMMEDIATE RELEASE) PO PRN (16:04)
[2024-04-26 06:37] LABS: Hemoglobin 12.6 g/dl (14.0-18.0); Mean Corpuscular Hemoglobin 30.1 pg (25.0-34.0); Mean Corpuscular Volume 86.1 fL (80.0-100.0); Mean Platelet Volume 11.5 fL (9.4-12.4); Nucleated RBC # (auto) 0.33 K/uL (0.00-0.12); Nucleated RBC % (auto) 3.1 %; Platelet Count 23 K/uL (130-400); RDW Coefficient of Variation 13.8 % (11.5-14.5); RDW Standard Deviation 42.7 fL (36.4-46.3); Red Blood Count 4.18 M/uL (4.70-6.10); White Blood Count 10.66 K/ul (4.8-10.8)
[2024-04-26 06:45] LABS: Albumin Globulin Ratio 1.5 (0.9-2); Albumin Level 3.8 gm/dl (3.4-5.0); Bilirubin,Total 1.1 mg/dl (0.2-1.0); Calcium 8.5 mg/dl (8.6-10.3); Creatinine Clr Calc Pharmacy 76.7 ml/min; Est GFR (African American) 76.8 ml/min; Est GFR (Non-African American) 66.3 ml/min; Globulin 2.5 gm/dl (2.5-4.0); Potassium 4.2 mmol/L (3.5-5.1); Total Protein 6.3 gm/dl (6.0-8.3)
[2024-04-26 07:12] LABS: ALC (manual) 3.84 K/uL (1.2-3.4); ANC (manual) 1.81 K/uL (1.4-6.5); Eosinophils # (manual) 0.43 K/uL (0-0.50); Eosinophils % (manual) 4 %; Lymphocytes # (manual) 3.84 K/uL (1.2-3.4); Lymphocytes % (manual) 36 %; Monocytes # (manual) 0.11 K/uL (0.11-0.59); Monocytes % (manual) 1 %; Myelocytes # (manual) 0.11 K/uL (0-0); Myelocytes % (manual) 1 %; Neutrophils # (manual) 1.81 K/uL (1.40-6.50); Neutrophils % (manual) 17 %; Other Cell Type % 41 %; Other Cells # (manual) 4.37 K/uL (0-0)
--- NOTE | 2024-04-26 12:44 | Hospitalist Progress Note ---
Date of Service April 26, 2024 Assessment & Plan (1) Back pain: Plan: -Back pain most likely musculoskeletal in nature -Continue on prednisone 20 mg twice daily. -K-pad as needed. -Flexeril 5 mg 3 times daily. Pain is fairly controlled on OxyContin 15 mg p.o. twice daily and oxycodone 5 mg p.o. every 6 as needed Continue Dilaudid IV for severe breakthrough pain Continue bowel regimen to prevent opioid-induced constipation MRI lumbar spine showed multilevel degenerative changes, severe central canal narrowing. There is also abnormal marrow signal intensity seen throughout osseous structures. Ortho spine consulted. Did not recommend any intervention at this time. This can be addressed in the future per orthospine. If the bone marrow biopsy result is unrevealing, we may need to get a sample from the lumbar spine eventually. For now we will wait on the bone marrow results. (2) Muscle spasticity: Plan: -Pain meds as needed, Flexeril 5 mg 3 times a day. (3) Body aches: Plan: -Patient with bodyaches and abnormal lab abnormalities without unknown source of infection. Patient also had thrombocytopenia, acute kidney injury and elevated liver enzymes. He has been started empirically on p.o. doxycycline to cover tickborne illnesses although tick panel is negative. Respiratory bio fire is negative Lactic acid was 2.2 that improved with IV fluids No leukocytosis Blood cultures negative Considering a manifestation of sarcoidosis flare or side effect of methotrexate as an etiology of his presentation Pulmonology and rheumatology involved. Waiting for bone marrow biopsy report Elevated liver enzymes. Liver ultrasound showed cirrhotic liver Acute kidney injury resolved Thrombocytopenia stable at 23 today (4) Thrombocytopenia: Plan: -Platelet count of 88 on admission, declined Stable at 23 today No bleeding so far Will transfuse platelets if platelet count is below 10 or starts bleeding Transfusion consent obtained and in chart Pathologist was concerned about MDS due to smear and flow cytometry results Hematology consulted Bone marrow biopsy done 04/24. Results will be available next week Child Care Specialist on board (5) SHRUTHI (acute kidney injury): Plan: -Creatinine of 1.73 on admission. Resolved with hydration (6) Atypical chest pain: Plan: -Patient with atypical chest pain most likely result of muscle spasticity. -Troponin negative. -Continue to monitor on telemetry. (7) Sarcoidosis: Plan: -Patient with a chest CTA yesterday which showed no pulmonary embolus. Signs of patient's pulmonary sarcoidosis. -Did also show solid pulmonary nodules measuring up to 6 mm, follow-up was recommended. -On methotrexate, holding at this time. Pulmonology and rheumatology on board. No solid plan at this time other than waiting for bone marrow biopsy results. (8) Nephrolithiasis: Plan: -Patient had a abdominal and pelvis CT that showed showed nonobstructing bilateral nephrolithiasis. -UA showed 1+ blood in urine. No bacteria present -Renal ultrasound showed mobile debris within the urinary bladder as well as mild bladder wall thickening. (9) Enlarged prostate: Plan: -Abdominal and pelvis CT earlier today showed prostamegaly with decompressed urinary bladder. Patient is not retaining anymore. Urinating without any difficulty Plan Code status: Full code DVT ppx: Thrombocytopenia with a platelet count of 20 today. No chemical prophylaxis. Admission and Anticipated Discharge Date Admission Date: April 23, 2024 Subjective Patient is doing much better from a pain control standpoint. He has used IV Dilaudid once this morning but for the most part his pain is fairly controlled with the oxycodone, OxyContin combo. Had a bowel movement yesterday. Review of Systems Review of Systems: All systems reviewed & are unremarkable except as noted in Subjective Physical Exam Physical Exam: General: Awake, conversant. Smiling. Heart: S1, S2/regular rate and rhythm, no murmur rubs or gallops Lungs: Clear to auscultation bilaterally. Normal effort Abdomen: Soft/nontender/nondistended. No hepatosplenomegaly Extremities: No clubbing/cyanosis. No edema Behavior: Appropriate, cooperative Results & Data Results & Data Vital Signs (Past 12 Hours) Vital Signs Temp Pulse Pulse Resp BP BP Pulse Ox 04/26/24 10:58 36.6 C 80 20 142/99 H 90 04/26/24 08:00 74 04/26/24 07:00 37.0 C 67 20 147/99 H 94 04/26/24 04:25 63 18 153/92 H 93 O2 Del Method 04/26/24 10:58 Room Air 04/26/24 08:00 04/26/24 07:00 Room Air 04/26/24 04:25 Room Air Laboratory Results Abnormal lab results 04/26/24 Range/Units 05:53 RBC 4.18 L (4.70-6.10) M/uL Hgb 12.6 L (14.0-18.0) g/dl Hct 36.0 L (42.0-52.0) % Plt Count 23 L* (130-400) K/uL Absolute Nucleated RBC 0.33 H (0.00-0.12) K/uL Lymphocytes # (Manual) 3.84 H (1.2-3.4) K/uL Total Abs Lymphocytes 3.84 H (1.2-3.4) K/uL Myelocytes # (Manual) 0.11 H (0-0) K/uL Other Cells # 4.37 H (0-0) K/uL Sodium 134 L (136-145) mmol/L BUN 24 H (6-23) mg/dl Calcium 8.5 L (8.6-10.3) mg/dl Total Bilirubin 1.1 H (0.2-1.0) mg/dl AST 44 H (13-39) U/L Alkaline Phosphatase 320 H (34-104) U/L PG Care Time/CCT Total # of Minutes Spent Total Time Spent with Patient: Total time spent is greater than 50% in coordination of care (as documented) at patient's floor/unit and/or counseling patient: Coding Level of Care Code 53995 SUB INP/OBS CARE MIN Diagnoses Back pain M54.9 Back pain laterality: unspecified Back pain location: back pain in unspecified location Chronicity: acute Muscle spasticity M62.838 Body aches R52 Thrombocytopenia D69.6 SHRUTHI (acute kidney injury) N17.9 Atypical chest pain R07.89 Sarcoidosis D86.9 Nephrolithiasis N20.0 Enlarged prostate N40.0 (1) Back pain Back pain laterality: unspecified Back pain location: back pain in unspecified location Chronicity: acute Qualified Code(s): M54.9 - Dorsalgia, unspecified
[2024-04-27 07:17] LABS: Hematocrit (blood only) 37.7 % (42.0-52.0); Hemoglobin 13.1 g/dl (14.0-18.0); Mean Corpuscular Hemoglobin 30.1 pg (25.0-34.0); Mean Corpuscular Hgb Conc 34.7 g/dL (32.0-36.0); Mean Corpuscular Volume 86.7 fL (80.0-100.0); Mean Platelet Volume 12.9 fL (9.4-12.4); Platelet Count 33 K/uL (130-400); RDW Coefficient of Variation 14.2 % (11.5-14.5); RDW Standard Deviation 44.3 fL (36.4-46.3); Red Blood Count 4.35 M/uL (4.70-6.10)
[2024-04-27 07:23] LABS: Nucleated RBC # (auto) 0.32 K/uL (0.00-0.12); Nucleated RBC % (auto) 2.9 %; White Blood Count 10.93 K/ul (4.8-10.8)
[2024-04-27 07:40] LABS: ALC (manual) 4.04 K/uL (1.2-3.4); ANC (manual) 1.97 K/uL (1.4-6.5); Blast # (manual) 0.11 K/uL (0-0); Blast Cells % (manual) 1 %; Eosinophils # (manual) 0.44 K/uL (0-0.50); Eosinophils % (manual) 4 %; Lymphocytes # (manual) 4.04 K/uL (1.2-3.4); Lymphocytes % (manual) 37 %; Metamyelocytes # (manual) 0.11 K/uL (0-0); Metamyelocytes % (manual) 1 %; Myelocytes # (manual) 0.33 K/uL (0-0); Myelocytes % (manual) 3 %; Neutrophils # (manual) 1.97 K/uL (1.40-6.50); Neutrophils % (manual) 18 %; Other Cell Type % 36 %; Other Cells # (manual) 3.93 K/uL (0-0)
--- NOTE | 2024-04-27 07:52 | Pulmonology Progress Note ---
Date of Service April 27, 2024 Assessment & Plan (1) Back pain: Back pain laterality: unspecified Back pain location: back pain in unspecified location Chronicity: acute Qualified Code(s): M54.9 - Dorsalgia, unspecified (2) Thrombocytopenia: (3) Anemia: (4) Sarcoidosis: Plan Impression: 58-year-old male with the history of stage II sarcoid on methotrexate admitted now with intractable back pain, abnormal spine imaging, thrombocytopenia and anemia with a peripheral smear showing nucleated red blood cells as well as circulating metamyelocytes and myelocytes with peripheral flow cytometry suggestive of MDS or potential lymphoproliferative disorder. There was concern about sarcoid causing marrow involvement which prompted a pulmonary consult. His imaging the chest shows no reactivation of sarcoid. CTA chest 04/21/2024 personally reviewed: Minimal dependent atelectasis bilateral lower lobes 5mm right lower lobe pulmonary nodule, overall the tree-in-bud opacities in the lower lobe have significantly improved Mediastinal lymphadenopathy s/p station 4R and station 7 persists -- Thrombocytopenia with blasts on the peripheral smear Bone biopsy has been performed f/u results Hold MTX for now -- Sarcoidosis Patient has nodules following bronchovascular architecture Along with multiple small and large nodules especially bilateral lower lobes more on the left side PET avid 02/27/2023 --> CT chest 04/2024 showed significant improvement in the nodularity Patient was also in the [employer] and has been stationed in [place] for 15 months, [facility] for 15 months and in [place]. Last stationing was in 2008 Prednisone started on 08/29/2021. completed 40 mg of prednisone for 4 weeks --> 30mg for 4 weeks --> 20mg for 4 weeks--> 10 mg for 4 weeks --> 7.5mg for 4 weeks --> 5mg 4 weeks --> 2.5mg for 2 weeks. Last day 03/18/2022 Baseline PFT 08/2021 FVC 5 L, 112%, FEV1 3.22 L 90%, TLC 90%, RV/TLC 92%, DLCO 69% Methotrexate was started on 02/27/2023, currently on methotrexate 10 mg q. , continue with folic acid Do CBC and CMP every 3 months given the stability Patient's hepatitis B, hepatitis C antibodies have been negative on 05/03/2022 Goal QuantiFERON negative PFT 10/17/2023 personally reviewed: No obstructive lung dysfunction, insignificant bronchodilator response, normal TLC, normal DLCO (Increase in FEV1 by 270 mL, increase in DLCO 89--> 109%, decrease in TLC 115-->93%, increase in weight by 14 pounds compared to 04/10) FVC 4.5 L 72%, FEV1 3.29 L 97%,FEV1/FVC 72%, ERV 114%, RV 104%, TLC 93%, RV/DLCO 100%, DLCO 109% EKG 11/14/2022: Normal sinus rhythm, no ST-T wave changes. No conduction abnormalities EBUS 08/02/2021: Noncaseating granulomas where appreciated on station 4L, station 7, as well as station 10 R BAL left lower lobe was negative for malignancy AFB stain was negative Gram stain negative for fungal organisms Labs 07/24/2021: Lymphopenia, AST/ALT/alk phos within normal limit, calcium 9.3 with albumin 3.7 DARCIE 69 Rheumatoid factor negative, anti-CCP negative Goal QuantiFERON negative Hep B and hep C negative -- COPD Used to smoke 2-3 cigars for approximately 10 years. Quit in 2016 Functional status is pretty decent I have given the patient Trelegy in the past but did not find any benefit from it. If he gets any worsening shortness of breath in future then consideration of Stiolto would be made Plan: Consideration of gabapentin for the lower back pain I highly doubt patient's finding being a result of sarcoidosis. Methotrexate has been associated with thrombocytopenia but would not give metamyelocytes. Follow-up pathology report from the biopsy. Continue to hold methotrexate. Please note the above document was generated using voice recognition software. It may contain grammatical, syntax or spelling errors.Any formal questions or concerns about the content, text or information contained within the body of this dictation should be directly addressed to the provider for clarification. Admission and Anticipated Discharge Date Admission Date: April 23, 2024 Subjective Patient seen and examined at bedside. No acute distress Patient stated today when he woke up he again had severe pain in the lower back going into the groin and the hip When it comes to his breathing is doing okay. Denies any chest pain, no shortness of breath No headache, no blurry vision No diarrhea, no dysuria No abdominal pain Review of Systems 2 Review of Systems: All systems reviewed & are unremarkable except as noted in Subjective Physical Exam 2 Physical Exam: Constitutional: No acute distress HEENT: EOMI, PERRLA Respiratory system: Good air entry bilaterally, no wheeze, no rhonchi, positive crackles bilaterally more on the right side CVS: S1-S2 positive, no murmurs or gallops Abdomen: Soft, nontender, nondistended, positive bowel sounds x4 Extremities: +2 pulses bilaterally radialis/ dorsalis pedis, no cyanosis, minimal pitting edema bilateral lower extremity Neuro: Awake alert oriented x3 Psych: Normal mood and affect G/U: No [place] Skin: no rashes, warm and dry Lymphatic: no cervical or axillary lymphadenopathy Results & Data Results & Data Vital Signs (Past 12 Hours) Vital Signs Temp Pulse Pulse Resp BP BP Pulse Ox 04/27/24 03:00 37.0 C 67 19 149/102 H 94 04/26/24 22:05 67 04/26/24 22:00 36.5 C 69 17 140/87 95 04/26/24 20:00 37.2 C 67 19 159/99 H 92 O2 Del Method 04/27/24 03:00 Room Air 04/26/24 22:05 04/26/24 22:00 Room Air 04/26/24 20:00 Room Air Laboratory Results 04/27/24 06:48 04/26/24 05:53 PG Care Time/CCT Total # of Minutes Spent Total Time Spent with Patient: Total time spent is greater than 50% in coordination of care (as documented) at patient's floor/unit and/or counseling patient: Coding Level of Care Code 01948 SUB INP/OBS CARE 3/50MIN Diagnoses Back pain M54.9 Back pain laterality: unspecified Back pain location: back pain in unspecified location Chronicity: acute Thrombocytopenia D69.6 Anemia D64.9 Sarcoidosis D86.9
[2024-04-27 10:55] VITALS: RESP 20; TEMP 99; O2SAT 90
--- NOTE | 2024-04-27 15:40 | Discharge Summary ---
Date of Service April 27, 2024 Admission HPI Per Admitting Provider Patient has a past medical history of sarcoidosis on methotrexate who presents to the hospital with back pain that radiates to his groin and down his thighs. Patient is also complaining of overall body pain. He has been seen in the ED 3 times since yesterday. Yesterday he was having chest pain which prompted him into the emergency room which was negative for any cardiac causes. He was sent home on prednisone. Around noon today patient was having some lower back pain and pain into his pelvis. He then was having diffuse pain all over. Majority of his back pain is in the right lower side. Denies any trauma to the area or any recent injuries. Denies heavy lifting. He states that he has not had much urine output. Denies any fevers or chills but did state that he felt clammy for a little bit. He has tried tramadol and morphine but did not alleviate the pain. Admission Exam Per Admitting Provider Constitutional: well-appearing, mild acute distress, uncomfortable HEENT: NCAT, no conjunctival injection CV: regular rhythm, no murmur appreciated, extremities well-perfused, no LE edema Resp: CTABL, no wheezes/rales/rhonchi appreciated, no increased work of breathing GI: soft, nondistended, nontender, BS normoactive MSK: Muscle spasticity in the lower back, thighs, hamstrings, abdominal wall Skin: warm, dry, no rash appreciated Neuro: alert, oriented, no focal neurologic deficit appreciated Principal Diagnosis Acute monocytic leukemia Worsening thrombocytopenia due to acute leukemia Intractable back pain Discharge Exam General: Awake, conversant. Smiling. Heart: S1, S2/regular rate and rhythm, no murmur rubs or gallops Lungs: Clear to auscultation bilaterally. Normal effort Abdomen: Soft/nontender/nondistended. No hepatosplenomegaly Extremities: No clubbing/cyanosis. No edema Behavior: Appropriate, cooperative Discharge Data Allergies Allergy/AdvReac Type Severity Reaction Status Date / Time No Known Allergies Allergy Verified 04/23/24 10:20 Consultations 04/23/24 01:11 ED Decision to Admit Stat 04/23/24 08:36 Consult Hematology Routine 04/24/24 07:22 Consult Orthopedic Spine Surgery Routine 04/24/24 11:17 Consult Pulmonology Routine 04/24/24 12:11 Consult Rheumatology Routine 04/27/24 14:41 Burn CD for patient Stat Ordered Studies 04/23/24 01:33 US Renal Bladder [US renal/blad retro comp] Stat 04/23/24 10:52 MRI Lumbar Spine [MR lumbar spine wo con] Urgent 04/24/24 09:20 IR bone marrow bx & asp Routine 04/24/24 09:31 US abdomen [US liver] Routine Hospital Course (1) Back pain: -Back pain most likely musculoskeletal in nature -Continue on prednisone 20 mg twice daily. -K-pad as needed. -Flexeril 5 mg 3 times daily. Pain is fairly controlled on OxyContin 15 mg p.o. twice daily and oxycodone 5 mg p.o. every 6 as needed Has been getting Dilaudid IV for severe breakthrough pain Continue bowel regimen to prevent opioid-induced constipation MRI lumbar spine showed multilevel degenerative changes, severe central canal narrowing. There is also abnormal marrow signal intensity seen throughout osseous structures. Ortho spine consulted. Did not recommend any intervention at this time. This can be addressed in the future per orthospine. (2) Acute monocytic leukemia: Bone marrow biopsy came back as acute monocytic leukemia Oncologist recommended transfer to [facility] Patient is willing Due to worsening thrombocytopenia, patient will need to be transferred. Accepted by Dr. Morales, oncologist at [facility] (3) Muscle spasticity: -Pain meds as needed, Flexeril 5 mg 3 times a day. (4) Body aches: -Patient with bodyaches and abnormal lab abnormalities without unknown source of infection. Patient also had thrombocytopenia, acute kidney injury and elevated liver enzymes. He has been started empirically on p.o. doxycycline to cover tickborne illnesses although tick panel is negative. Will discontinue doxycycline upon discharge now that we have a diagnosis of acute leukemia to explain the thrombocytopenia Respiratory bio fire is negative Lactic acid was 2.2 that improved with IV fluids No leukocytosis Blood cultures negative Pulmonology and rheumatology involved. Elevated liver enzymes. Liver ultrasound showed cirrhotic liver Acute kidney injury resolved Thrombocytopenia Most likely due to acute leukemia (5) Thrombocytopenia: -Platelet count of 88 on admission, declined down to as low as 23. Today 33 No bleeding so far Acute leukemia diagnosed, biopsy-proven Will need transfer to [facility] for leukemia treatment (6) SHRUTHI (acute kidney injury): -Creatinine of 1.73 on admission. Resolved with hydration (7) Atypical chest pain: -Patient with atypical chest pain most likely result of muscle spasticity. -Troponin negative. -Continue to monitor on telemetry. (8) Sarcoidosis: -Patient with a chest CTA yesterday which showed no pulmonary embolus. Signs of patient's pulmonary sarcoidosis. -Did also show solid pulmonary nodules measuring up to 6 mm, follow-up was recommended. -On methotrexate, holding at this time. Pulmonology and rheumatology on board. (9) Nephrolithiasis: -Patient had a abdominal and pelvis CT that showed showed nonobstructing bilateral nephrolithiasis. -UA showed 1+ blood in urine. No bacteria present -Renal ultrasound showed mobile debris within the urinary bladder as well as mild bladder wall thickening. (10) Enlarged prostate: -Abdominal and pelvis CT earlier today showed prostamegaly with decompressed urinary bladder. Patient is not retaining anymore. Urinating without any difficulty Plan Transfer to [facility] Total Time Total Time Spent Total Time Spent (In Minutes): 35 Discharge Plan Discharge Items Patient Disposition: Transfer Acute Care Hospital Reason For Visit: BODY ACHES, THROMBOCYTOPENIA, SHRUTHI Discharge Diagnosis: Acute monocytic leukemia Worsening thrombocytopenia due to acute leukemia Intractable back pain Activity: As commented below Activity Comment: Bedrest Non-emergency contact: Primary Care Provider Call non-emergency contact if: you have any medication questions and your symptoms worsen Follow-up/Referrals: Waylon Gil MD [Primary Care Provider] - Diet: Regular Addtl Attending Provider Instructions: Advised to note that you are being transferred to [facility] for escalation of care Your biopsy report proves that you have acute leukemia Pending Studies at Discharge: No Stand-Alone Forms: My [facility] Skilled Items Patient informed of condition?: Yes DNR: No Discharge Level of Care: Other Communicable Disease: No Discharge Prognosis: Stable Lines: Peripheral IV Urinary Catheter: No Medications and DC Order Prescriptions: Continued fexofenadine 180 mg Tablet 180 mg PO QAM folic acid 1 mg tablet 1 mg PO QAM prednisone 20 mg tablet 20 mg PO BID 5 Days Qty: 10 0RF oxycodone 5 mg tablet 5 mg PO Q8H PRN (Reason: pain) Qty: 11 0RF cyclobenzaprine 5 mg tablet 5 mg PO TID PRN (Reason: muscle spasm) Qty: 30 0RF cholecalciferol (vitamin D3) 25 mcg (1,000 unit) tablet 50 mcg PO DAILY Held methotrexate sodium 2.5 mg tablet 10 mg PO WK Hold Instructions: Resume on 05/11/24. Or until cleared to resume by accepting facility Rx Instructions: 10 mg orally every ; Discharge Orders: Discharge Order (Routine); Ordered 04/27/24 Ordered By: Faviola Horvath Admission Data Admit Date/Time: 04/23/24 01:42 Attending Provider: Faviola Horvath Admit Provider: Fortunato Mendes Primary Care Provider: Waylon Gil Other Providers: Lorene Erickson; Mac Patel; Ismael Ferreira; [facility]; Ismael Camp; Ismael Coffey
[2024-04-27 16:02] VITALS: BP 149/102; PULSE 67
[2024-04-28 12:09] LABS: Ehrlichia chaff DNA Bld Negative (Negative)
== END 2024-04-27 16:18 | disposition short-term general hospital (02) | DRG 835 ==
LOC: ED 22:43 → 2E 04-23 01:42 → SUATTDRO 04-23 01:42 → 2E 04-23 02:04